=== PATIENT | female | born 1955 | race Caucasian/White ===

== ENCOUNTER → 2016-02-23 | Outpatient (CLI) | payer OTHER ==
[~2016-02-23] MED LIST: ACET300T2 PO; ACET325T PO; AMIT100T2 PO; AMIT1TAB79 PO; AMIT25TA9 PO; ASPI-110 PO; ASPI81TA11 PO; ATEN25TA PO; BACL10TA PO; BACL20TA PO; CELE40TA PO; CITA40TA4 PO; CLON0.5T PO; CLON1 PO; CYMB60CA PO; DOCU100C PO; DULO1CAP2 PO; DULO1CAP3 PO; ESTR1TAB PO; HYDR-3516 PO; LEVO75TA3 PO; LIDO1PAD52 TOPICAL; MECL-62 PO; MELO-1 PO; METH500T3 PO; MILKSUS PO; NORC5TAB PO; PANT40TA3 PO; PERC5TAB12 PO; PERC7.5T13 PO; POLY17S PO; PROT40TA PO; ROBA750T PO; ROLLER WALKER1 MI1; TRAM50TA PO; ULTR50TA5 PO; VENTAER INH
[2016-02-23 09:22] LABS: THYROXINE (T4) 11.6 MCG/DL (4.8-13.9)
[2016-02-23 09:32] LABS: CORTISOL 14.6 MCG/DL
== END ==
LOC: CLAB 08:26
PROVIDERS: ATTEND Family Medicine
DX: R94.7 Abnormal results of other endocrine function studies (principal); E03.8 Other specified hypothyroidism; Z79.899 Other long term (current) drug therapy
CPT/HCPCS: 36415; 82533; 84436; 84443; 84480

== ENCOUNTER → 2016-03-08 | Outpatient (CLI) | payer OTHER ==
[2016-03-08 12:04] LABS: AUTOMATED NEUTROPHIL # 1.5 TH/MM3 (1.8-7.7); BASOPHIL % 1.4 % (0.0-2.0); EOSINOPHIL # 0.1 TH/MM3 (0-0.4); EOSINOPHIL % 3.4 % (0.0-4.0); HEMATOCRIT 39.4 % (35.0-46.0); HEMO FLAGS DIFF FINAL; LYMPH % 39.2 % (9.0-44.0); LYMPHOCYTE # 1.2 TH/MM3 (1.0-4.8); MEAN CELL VOLUME 86.5 FL (80.0-100.0); MEAN CORPUSCULAR HEMOGLOBIN 29.1 PG (27.0-34.0); MEAN CORPUSCULAR HGB CONC 33.6 % (32.0-36.0); PLATELET COUNT 314 TH/MM3 (150-450); RED BLOOD COUNT 4.56 MIL/MM3 (4.00-5.30); RED CELL DISTRIBUTION WIDTH 13.1 % (11.6-17.2); WHITE BLOOD COUNT 3.1 TH/MM3 (4.0-11.0)
[2016-03-08 12:10] LABS: BLOOD, URINE NEG (NEG); GLUCOSE,URINE NEG (NEG); KETONE, URINE NEG (NEG); MUCUS URINE FEW /lpf (OCC); NITRITE,URINE NEG (NEG); PH, URINE 7.5 (5.0-8.5); SQUAMOUS EPITHELIAL CELL URINE <1 /hpf (0-5); URINE COLOR YELLOW (YELLW/STRAW)
[2016-03-08 12:12] LABS: COMMENT (UR) CULT NOT INDICATED; CULTURE IF INDICATED CULT NOT INDICATED
[2016-03-08 12:34] LABS: BICARBONATE 28.7 MEQ/L (21.0-32.0); POTASSIUM 4.1 MEQ/L (3.5-5.1)
== END ==
LOC: ELAB 10:07
PROVIDERS: ATTEND Family Medicine
DX: R11.2 Nausea with vomiting, unspecified (principal); N39.0 Urinary tract infection, site not specified; R53.83 Other fatigue; R42 Dizziness and giddiness; R63.0 Anorexia; R19.7 Diarrhea, unspecified; Z79.899 Other long term (current) drug therapy
CPT/HCPCS: 36415; 80048; 81001; 85025

== ENCOUNTER 2016-05-01 16:06 | Inpatient (IN) | payer OTHER ==
[2016-05-01] VITALS (7 sets, daily range): BP systolic 94–143; BP diastolic 50–73; PULSE 78–90; RESP 16–18; TEMP 97.8–98.8; O2SAT 97–100
[~2016-05-01] VITALS: Ht 172.7 cm; Wt 70.0 kg
[~2016-05-01 16:06] MED LIST changes: -ACET300T2 PO; -ACET325T PO; -AMIT100T2 PO; -AMIT25TA9 PO; -ASPI-110 PO; -ATEN25TA PO; -BACL20TA PO; -CITA40TA4 PO; -CLON0.5T PO; -DULO1CAP2 PO; -DULO1CAP3 PO; -MECL-62 PO; -MELO-1 PO; -METH500T3 PO; -MILKSUS PO; -NORC5TAB PO; -PERC5TAB12 PO; -PERC7.5T13 PO; -PROT40TA PO; -ROBA750T PO; -ROLLER WALKER1 MI1; -TRAM50TA PO; -ULTR50TA5 PO
[2016-05-01] MEDS ORDERED: SODIUM CHLOR 0.9% 1000 ML INJ 1,000 ML IV ONE (16:36)
[2016-05-01] MEDS ORDERED: ACETAMINOPHEN/HYDROcodone 325 MG/5 MG TAB PO ONE (16:45)
[2016-05-01] MEDS ORDERED: MECLIZINE HCL 25 MG TAB PO ONE (16:45)
[2016-05-01] MEDS ORDERED: ONDANSETRON HCL 4 MG/2 ML VIAL IVP ONE (16:45)
[2016-05-01] MEDS ORDERED: BACL20TA PO (16:55)
[2016-05-01 16:59] LABS: AUTOMATED NEUTROPHIL # 3.6 TH/MM3 (1.8-7.7); BASOPHIL % 0.5 % (0.0-2.0); EOSINOPHIL # 0.1 TH/MM3 (0-0.4); EOSINOPHIL % 1.3 % (0.0-4.0); HEMATOCRIT 36.1 % (35.0-46.0); HEMO FLAGS DIFF FINAL; LYMPH % 26.3 % (9.0-44.0); LYMPHOCYTE # 1.5 TH/MM3 (1.0-4.8); MEAN CELL VOLUME 87.5 FL (80.0-100.0); MEAN CORPUSCULAR HEMOGLOBIN 28.7 PG (27.0-34.0); MEAN CORPUSCULAR HGB CONC 32.8 % (32.0-36.0); MONO % 9.9 % (0.0-8.0); PLATELET COUNT 305 TH/MM3 (150-450); RED BLOOD COUNT 4.13 MIL/MM3 (4.00-5.30); RED CELL DISTRIBUTION WIDTH 14.3 % (11.6-17.2); WHITE BLOOD COUNT 5.8 TH/MM3 (4.0-11.0)
[2016-05-01 17:05] LABS: APTT (PATIENT) 24.7 SEC (24.3-30.1)
[2016-05-01 17:16] LABS: ANION GAP 7 MEQ/L (5-15); BICARBONATE 25.3 MEQ/L (21.0-32.0); BLOOD UREA NITROGEN 13 MG/DL (7-18); CHLORIDE 107 MEQ/L (98-107); GLOMERULAR FILTRATION RATE 86 ML/MIN (>89); SODIUM (NA) 139 MEQ/L (136-145)
--- NOTE | 2016-05-01 17:19 | RADRPT ---
EXAM DATE/TIME: 05/01/2016 17:05 [facility] COMPARISON: CT BRAIN W/O CONTRAST, July 02, 2013, 14:07. INDICATIONS : Dizziness, vertigo and nausea. RADIATION DOSE: 35.74 CTDIvol (mGy) MEDICAL HISTORY : Cardiovascular disease. SURGICAL HISTORY : None. ENCOUNTER: Initial ACUITY: 1 day PAIN SCALE: 2/10 LOCATION: cranial TECHNIQUE: Multiple contiguous axial images were obtained of the head. Using automated exposure control and adj ustment of the mA and/or kV according to patient size, radiation dose was kept as low as reasonably a chievable to obtain optimal diagnostic quality images. FINDINGS: CEREBRUM: The ventricles are normal for age. No evidence of midline shift, mass lesion, hemorrhage or acute in farction. No extra-axial fluid collections are seen. POSTERIOR FOSSA: The cerebellum and brainstem are intact. The 4th ventricle is midline. The cerebellopontine angle i s unremarkable. EXTRACRANIAL: The visualized portion of the orbits is intact. SKULL: The calvaria is intact. No evidence of skull fracture. CONCLUSION: No acute disease. Skip Solo MD on May 01, 2016 at 17:17 Board Certified Radiologist. This report was verified electronically.
[2016-05-01 17:22] LABS: CREATINE KINASE 38 U/L (26-192)
--- NOTE | 2016-05-01 17:25 | PD ---
HPI Chief Complaint: Dizziness Time Seen by Provider: 17:19 Travel History International Travel<30 days: No Contact w/Intl Traveler<30days: No Traveled to known affect area: No History of Present Illness HPI 60-year-old female that presents to the ED for evaluation of dizziness. Patient came here by ambulance for evaluation of this. Per patient today she was trying to take a nap and also and she felt dizzy. Per patient she felt like the room was spinning. Per patient she couldn't get up and any position made the symptoms worse. Per patient she still feels somewhat dizzy but not as bad. Per patient as long as she doesn't move too much and she is okay. She does tell me that she has a significant history of recent trauma to the head with concussion as well as fractures. Patient was seen at [facility] for this after she fell from a horse and she was admitted to a rehabilitation facility where we have records of her injuries. She was diagnosed with a concussion but no bleeding. The patient she was concerned because of the dizziness and the recent injury that she could have something else going on and that is what made her call the ambulance and brought her here. Patient denies any other symptom. Per patient she did not have any of the symptoms since having the injury. She denies any new falls or injuries. She has pain on her back which is 7 out of 10 and she requested a Lortab which is what she usually takes for it as she has missed her dose for today since being here. Other than that she denies any other pain. No headache. No blurry vision. No double vision. No loss of vision. Has an allergy to morphine. PFSH Past Medical History Arthritis: Yes Asthma: Yes Autoimmune Disease: No Anxiety: Yes Depression: Yes Heart Rhythm Problems: Yes (Ocassional palpitations) Cancer: No Cardiac Catheterization: No Cardiovascular Problems: No High Cholesterol: No Chemotherapy: No Congestive Heart Failure: No COPD: No Cerebrovascular Accident: No Diabetes: No Diminished Hearing: No Endocrine: Yes Fibromyalgia: Yes Gastrointestinal Disorders: Yes (GASTROENTERITIS) GERD: Yes Genitourinary: No Headaches: Yes Hiatal Hernia: No Hypertension: Yes Immune Disorder: No Kidney Stones: No Musculoskeletal: Yes (L CLAVICLE, R WRISYA, L3-L4) Neurologic: Yes (TBI) Psychiatric: Yes Reproductive: No Respiratory: Yes Migraines: No Pneumonia: Yes Radiation Therapy: No Renal Failure: No Seizures: No Sickle Cell Disease: No Sleep Apnea: No Thyroid Disease: Yes (hypothyroidism) Ulcer: No Tetanus Vaccination: < 5 Years Influenza Vaccination: Yes ?: Not Menopausal: Yes : 5 Para: 5 Tubal Ligation: Yes Past Surgical History AICD: No Appendectomy: Yes Arteriovenous Shunt: No Body Medical Devices: Jaw - screws Cardiac Surgery: Yes Coronary Artery Bypass Graft: No Ear Surgery: No Endocrine Surgery: No Eye Surgery: No Genitourinary Surgery: No Gynecologic Surgery: Yes (Hysterectomy 2014) Hysterectomy: Yes Insulin Pump: No Joint Replacement: No Oral Surgery: No Pacemaker: No Thoracic Surgery: No Tonsillectomy: Yes Other Surgery: Yes (2 KNEE SURGERIES, JAW SURGERY) Family History Family Myocardial Infarction: Yes (Father) Social History Alcohol Use: No (OCC) Tobacco Use: No Substance Use: No Allergies-Medications (Allergen,Severity, Reaction): Coded Allergies: Morphine (Verified Allergy, Intermediate, Nausea/Vomiting, 05/01/16) Reported Meds & Prescriptions Reported Meds & Active Scripts Active Hydrocodone-Acetaminophen 5-325 mg Tab 1 Tab PO Q4H PRN Elavil (Amitriptyline HCl) 25 Mg Tab 25 Mg PO HS Aspirin EC (Aspirin) 81 Mg Tabdr 81 Mg PO DAILY Klonopin (Clonazepam) 1 Mg Tab 1 Mg PO TID Celexa (Citalopram Hydrobromide) 40 Mg Tab 40 Mg PO DAILY Cymbalta DR (Duloxetine HCl) 60 Mg Capdr 60 Mg PO DAILY Levothyroxine (Levothyroxine Sodium) 75 Mcg Tab 75 Mcg PO DAILY Estradiol 1 Mg Tab 1 Mg PO DAILY Ventolin Hfa 18 GM Inh (Albuterol Sulfate) 90 Mcg/Act Aer 2 Puff INH Q4-6H PRN Reported Baclofen 20 Mg Tab 20 Mg PO QID Review of Systems General / Constitutional: No: Fever, Chills, Weight Gain, Weight Loss, Other Eyes: No: Diploplia, Blurred Vision, Photophobia, Drainage, Redness, Foreign Body Sensation, Pain, Tearing, Blind Spots, Visual changes, Blindness, Other HENT: No: Headaches, Vertigo, Lightheadedness, Sore Throat, Rhinitis, Rhinorrhea, Congestion, Nosebleed, Neck Stiffness, Neck Pain, Masses, Gingival Bleeding, Dental Difficulties, Ear Discharge, Earache, Other Cardiovascular: No: Chest Pain or Discomfort, Palpitations, Irregular Rhythm, Tachycardia, Diaphoresis, Syncope, Dyspnea on exertion, Varicosities, Edema, Cyanosis, Varicosities, Phlebitis, Claudication, Other Respiratory: No: Cough, Shortness of Breath, Wheezing, Sneezing, Orthopnea, Hemoptysis, Stridor, Night Sweats, Pleuritic Pain, Other Gastrointestinal: No: Nausea, Vomiting, Diarrhea, Abdominal Pain, Hematemesis, Hematochezia, Constipation, Changes in Bowel Habits, Indigestion, Dysphagia, Loss of Appetite, Other Genitourinary: No: Urgency, Frequency, Dysuria, Nocturia, Hematuria, Decreased Urinary Output, Oliguria, Hesitancy, Dribbling, Incontinence, Pelvic Pain, Flank Pain, Dyspareunia, Discharge, Dysmenorrhea, Menorrhagia, Metorrhagia, Vaginal Bleeding, Other Musculoskeletal: Positive: Pain, No: Myalgias, Arthralgias, Limited ROM, Weakness, Cramping, Edema, Atrophy, Other Skin: No Rash, No Itching, No Dryness, No Lumps, No Hives, No Change in Pigmentation, No Change in nails, No Alopecia, No Lesions, No Breast Lumps, No Breast Tenderness, No Breast Swelling, No Other Neurologic: Positive: Dizziness, No: Weakness, Syncope, Focal Abnormalities, Coordination Problem, Tremor, Ataxia, Headache, Change in Mentation, Slurred Speech, Paresthesia, Incontinence, Seizures, Sensory Disturbance, Other Psychiatric: No: Anxiety, Depression, Suicidal Ideations, Disorder of Thought, Mood Disorder, Substance Abuse, Homicidal Ideation, Other Endocrine: No: Heat Intolerance, Cold Intolerance, Polyuria, Polydipsia, Other Hematologic/Lymphatic: No: Easy Bruising, Lymph Node Enlargement, Other Physical Exam Narrative GENERAL: SKIN: Warm and dry. HEAD: Atraumatic. Normocephalic. EYES: Pupils equal and round. No scleral icterus. No injection or drainage. ENT: No nasal bleeding or discharge. Mucous membranes pink and moist. Tongue is midline. No uvula deviation. NECK: Trachea midline. No JVD. CARDIOVASCULAR: Regular rate and rhythm. No murmurs, S3, S4. RESPIRATORY: No accessory muscle use. Clear to auscultation. Breath sounds equal bilaterally. GASTROINTESTINAL: Abdomen soft, non-tender, nondistended. Hepatic and splenic margins not palpable. MUSCULOSKELETAL: Extremities without clubbing, cyanosis, or edema. No obvious deformities. Full range of motion of the upper and lower extremities bilaterally. 2+ pulses bilaterally. NEUROLOGICAL: Awake and alert. No obvious cranial nerve deficits. Motor grossly within normal limits. Five out of 5 muscle strength in the arms and legs. Normal speech. PSYCHIATRIC: Appropriate mood and affect; insight and judgment normal. Data Data Last Documented VS Vital Signs Date Time Temp Pulse Resp B/P Pulse Ox O2 Delivery O2 Flow Rate FiO2 05/01/16 17:50 99 21 05/01/16 17:25 72 17 143/71 05/01/16 16:50 Room Air 05/01/16 16:30 98.0 Orders Electrocardiogram (05/01/16 16:36) Basic Metabolic Panel (Bmp) (05/01/16 16:36) Complete Blood Count With Diff (05/01/16 16:36) Magnesium (Mg) (05/01/16 16:36) Ckmb (Isoenzyme) Profile (05/01/16 16:36) Troponin I (05/01/16 16:36) Act Partial Throm Time (Ptt) (05/01/16 16:36) Prothrombin Time / Inr (Pt) (05/01/16 16:36) Ct Brain W/O Iv Contrast(Rout) (05/01/16 16:36) Ecg Monitoring (05/01/16 16:36) Iv Access Insert/Monitor (05/01/16 16:36) Oximetry (05/01/16 16:36) Meclizine (Antivert) (05/01/16 16:45) Ondansetron Inj (Zofran Inj) (05/01/16 16:45) Sodium Chlor 0.9% 1000 Ml Inj (Ns 1000 M (05/01/16 16:36) Orthostatic Vital Signs (05/01/16 16:36) Acetamin-Hydrocod 325-5 Mg (Ethel 5-325 (05/01/16 16:45) Sodium Chlor 0.9% 1000 Ml Inj (Ns 1000 M (05/01/16 17:45) Admit Order (Ed Use Only) (05/01/16 17:45) Administrative Specialist / Telemetry [email or web address] (05/01/16 17:45) Vital Signs (Adult) Q4H (05/01/16 17:45) Diet Regular Basic (05/01/16 Dinner) Activity Bed Rest (05/01/16 17:45) ^ Saline Lock (05/01/16 17:45) Resp Oxygen Adan C Titrat 1-4 L (05/01/16 ) ^ Notify Dr: Other (05/01/16 17:45) Sodium Chloride 0.9% Flush (Ns Flush) (05/01/16 21:00) Sodium Chloride 0.9% Flush (Ns Flush) (05/01/16 17:45) Consult Neurology (05/01/16 ) Labs Laboratory Tests Test 05/01/16 16:45 White Blood Count 5.8 TH/MM3 Red Blood Count 4.13 MIL/MM3 Hemoglobin 11.9 GM/DL Hematocrit 36.1 % Mean Corpuscular Volume 87.5 FL Mean Corpuscular Hemoglobin 28.7 PG Mean Corpuscular Hemoglobin 32.8 % Concent Red Cell Distribution Width 14.3 % Platelet Count 305 TH/MM3 Mean Platelet Volume 6.9 FL Neutrophils (%) (Auto) 62.0 % Lymphocytes (%) (Auto) 26.3 % Monocytes (%) (Auto) 9.9 % Eosinophils (%) (Auto) 1.3 % Basophils (%) (Auto) 0.5 % Neutrophils # (Auto) 3.6 TH/MM3 Lymphocytes # (Auto) 1.5 TH/MM3 Monocytes # (Auto) 0.6 TH/MM3 Eosinophils # (Auto) 0.1 TH/MM3 Basophils # (Auto) 0.0 TH/MM3 CBC Comment DIFF FINAL Differential Comment Prothrombin Time 11.0 SEC Prothromb Time International 1.0 RATIO Ratio Activated Partial 24.7 SEC Thromboplast Time Sodium Level 139 MEQ/L Potassium Level 4.0 MEQ/L Chloride Level 107 MEQ/L Carbon Dioxide Level 25.3 MEQ/L Anion Gap 7 MEQ/L Blood Urea Nitrogen 13 MG/DL Creatinine 0.70 MG/DL Estimat Glomerular Filtration 86 ML/MIN Rate Random Glucose 95 MG/DL Calcium Level 8.2 MG/DL Magnesium Level 2.0 MG/DL Total Creatine Kinase 38 U/L Troponin I LESS THAN 0.02 NG/ML MDM Medical Decision Making Medical Screen Exam Complete: Yes Emergency Medical Condition: Yes Medical Record Reviewed: Yes Interpretation(s) CBC & BMP Diagram 05/01/16 16:[address] 05/01/16 1636 Signed Impressions: Service Date/Time: Sunday, May 01, 2016 17:05 - CONCLUSION: No acute disease. Skip Solo MD EKG shows sinus rhythm with no sign of acute ischemia or arrythmia. Read by me and attending. Differential Diagnosis Dizziness versus concussion versus head bleed versus electron normality versus vertigo versus syncope versus orthostatic hypotension Narrative Course 60-year-old female that presents to the ED that presents to the ED for evaluation of dizziness. Patient was properly examined and was found to have signs and symptoms consistent with appears to be possible vertigo. Unclear to this time. Labs and imaging ordered. She was given IV fluids. Meclizine given. Lortab for pain. Labs and imaging showed no obvious sign of acute disease. Unfortunately we cannot do the orthostatics on the patient as she is too symptomatic. Patient cannot even sit with her having severe symptoms and we cannot even assess her orthostatics. Patient appears to be well with lying down. At this time I recommend admission as patient is not safe discharge. I spoke with Dr. Rodgers my attending who agrees to admission. Patient will be admitted to Dr. Darnell who agrees to admission. He asked me to put a consult to neurology as well as some admitting orders. Procedures EKG Prior to Arrival: No Diagnosis Primary Impression: Dizziness Additional Impression: Vertigo Admitting Information Admitting Physician Requests: Nolan Ayala May 01, 2016 17:25
[2016-05-01] MEDS ORDERED: SODIUM CHLORIDE 0.9% FLUSH 10 ML FLUSH IVF PRN (17:45)
[2016-05-01] MEDS ORDERED: SODIUM CHLOR 0.9% 1000 ML INJ 1,000 ML IV SCH (17:45)
[2016-05-01] MEDS ORDERED: SODIUM CHLORIDE 0.9% FLUSH 10 ML FLUSH IV FLUSH PRN (20:15)
[2016-05-01] MEDS ORDERED: NALOXONE HCL 0.4 MG/ML AMP IV PRN (20:15)
[2016-05-01] MEDS: SODIUM CHLOR 0.9% 1000 ML INJ 1,000 ML IV SCH (20:43)
[2016-05-01] MEDS: SODIUM CHLORIDE 0.9% FLUSH 10 ML FLUSH IV FLUSH SCH (20:43)
[2016-05-01] MEDS ORDERED: SODIUM CHLORIDE 0.9% FLUSH 10 ML FLUSH IV FLUSH SCH (21:00)
[2016-05-01] MEDS ORDERED: AMITRIPTYLINE HCL 25 MG TAB PO SCH (22:35)
[2016-05-01] MEDS: ACETAMINOPHEN/HYDROcodone 325 MG/5 MG TAB PO PRN (22:52)
[2016-05-01] MEDS: clonazePAM 1 MG TAB PO SCH (22:52)
[2016-05-02] VITALS (7 sets, daily range): BP systolic 108–119; BP diastolic 60–67; PULSE 57–90; RESP 18–20; TEMP 97.1–98.6; O2SAT 94–97
[2016-05-02] MEDS: ACETAMINOPHEN/HYDROcodone 325 MG/5 MG TAB PO PRN ×3 (04:56→15:10)
[2016-05-02 05:22] LABS: AUTOMATED NEUTROPHIL # 3.2 TH/MM3 (1.8-7.7); BASOPHIL % 0.6 % (0.0-2.0); EOSINOPHIL # 0.1 TH/MM3 (0-0.4); EOSINOPHIL % 1.3 % (0.0-4.0); HEMATOCRIT 33.5 % (35.0-46.0); HEMO FLAGS DIFF FINAL; LYMPHOCYTE # 1.9 TH/MM3 (1.0-4.8); MEAN CELL VOLUME 87.7 FL (80.0-100.0); MEAN CORPUSCULAR HGB CONC 34.2 % (32.0-36.0); MONO % 9.4 % (0.0-8.0); NEUT % 55.7 % (16.0-70.0); PLATELET COUNT 309 TH/MM3 (150-450); RED BLOOD COUNT 3.82 MIL/MM3 (4.00-5.30); RED CELL DISTRIBUTION WIDTH 14.7 % (11.6-17.2); WHITE BLOOD COUNT 5.7 TH/MM3 (4.0-11.0)
[2016-05-02 05:49] LABS: ALT (GPT) 29 U/L (10-53); ANION GAP 7 MEQ/L (5-15); AST (GOT) 7 U/L (15-37); BICARBONATE 26.3 MEQ/L (21.0-32.0); BLOOD UREA NITROGEN 12 MG/DL (7-18); CHLORIDE 108 MEQ/L (98-107); GLOMERULAR FILTRATION RATE 68 ML/MIN (>89); POTASSIUM 4.3 MEQ/L (3.5-5.1); SODIUM (NA) 141 MEQ/L (136-145)
[2016-05-02 05:57] LABS: ALKALINE PHOSPHATASE 53 U/L (45-117); FREE T3 1.63 PG/ML (2.18-3.98); TOTAL BILIRUBIN ADULT 0.2 MG/DL (0.2-1.0)
--- NOTE | 2016-05-02 07:35 | HHI.HP ---
History of Present Illness Service Family medicine Primary Care Physician Jose Manuel Darnell, DO Admission Diagnosis dizziness, possible vertigo, inability to ambulate Diagnoses: History of Present Illness Patient is a very pleasant 60 year old female who presented to the ER via evac for extreme dizziness. She has had a admission at [facility] this year after being thrown off a horse and incurred a concussion, numerous fractures, and abdominal bleed. She woke up yesterday and felt slightly dizzy however it improved after she started moving. In the early afternoon yesterday she was sitting on the couch and the dizziness returned and she was unable to stand up. She denies and cold symptoms, fevers, nausea or vomiting. 10-year-old . Per patient she felt like the room was spinning. Per patient she couldn't get up and any position made the symptoms worse. The patient was also concerned because of the dizziness and the recent injury that she could have something else going on and that is what made her call the ambulance and brought her here. Per patient she did not have any of the symptoms since having the injury. She denies any new falls or injuries. No headache. No blurry vision. No double vision. No loss of vision. Has an allergy to morphine. Head CT done with no acute findings and neurology consulted. Patient has a past medical history of anxiety, PTSD, depression Fibromyalgia, hypothyroidism, and chronic pain. . Review of Systems Constitutional: COMPLAINS OF: Dizziness Eyes: DENIES: Blurred vision, Diplopia, Vision loss, Double Vision Ears, nose, mouth, throat: COMPLAINS OF: Vertigo, DENIES: Hearing loss, Throat pain, Sinus Pain Respiratory: DENIES: Sputum production, Shortness of breath Cardiovascular: DENIES: Chest pain, Palpitations, Syncope Gastrointestinal: DENIES: Abdominal pain, Constipation, Diarrhea, Nausea Integumentary: DENIES: Pruritus, Rash Neurologic: COMPLAINS OF: Abnormal gait, DENIES: Seizures, Speech Problems, Tremor Psychiatric: COMPLAINS OF: Anxiety, Depression Past Family Social History Allergies: Coded Allergies: Morphine (Verified Allergy, Intermediate, Nausea/Vomiting, 05/01/16) Past Medical History Anxiety, depression, fibromyalgia, PTSD, arthritis, hypothyroidism, and GERD Past Surgical History Appendectomy: Yes Body Medical Devices: Jaw - screws Gynecologic Surgery: Yes (Hysterectomy 2014) Hysterectomy: Yes Tonsillectomy: Yes Other Surgery: Yes (2 KNEE SURGERIES, JAW SURGERY) Reported Medications Current Medications Medications (Trade) Dose Ordered Sig/Yancy Route Start Time Stop Time Status Last Admin (NS 1000 ml Inj) 1,000 ml @ 100 mls/hr Q10H IV 05/01/16 21:00 (NS Flush) 2 ml UNSCH PRN IV FLUSH 05/01/16 20:15 (NS Flush) 2 ml BID IV FLUSH 05/01/16 21:00 (Narcan Inj) 0.4 mg UNSCH PRN IV 05/01/16 20:15 (Elavil) 25 mg HS PO 05/01/16 22:35 05/01/16 22:53 (KlonoPIN) 1 mg TID PO 05/01/16 22:35 05/01/16 22:52 ([place] 5-325 Mg) 1 tab Q4H PRN PO 05/01/16 22:30 05/02/16 04:56 Active Ordered Medications Current Medications Medications (Trade) Dose Ordered Sig/Yancy Route Start Time Stop Time Status Last Admin (NS 1000 ml Inj) 1,000 ml @ 100 mls/hr Q10H IV 05/01/16 21:00 (NS Flush) 2 ml UNSCH PRN IV FLUSH 05/01/16 20:15 (NS Flush) 2 ml BID IV FLUSH 05/01/16 21:00 (Narcan Inj) 0.4 mg UNSCH PRN IV 05/01/16 20:15 (Elavil) 25 mg HS PO 05/01/16 22:35 05/01/16 22:53 (KlonoPIN) 1 mg TID PO 05/01/16 22:35 05/01/16 22:52 ([place] 5-325 Mg) 1 tab Q4H PRN PO 05/01/16 22:30 05/02/16 04:56 Family History Mother is in good health Father significant HTN and cardiac disease. Social History Quit smoking over 23 years ago Occasional ETOH use Lives in 2 nd story and son is living with patient currently Works as a nurse. Physical Exam Vital Signs Vital Signs Date Time Temp Pulse Resp B/P Pulse Ox O2 Delivery O2 Flow Rate FiO2 05/02/16 03:24 98.6 78 18 108/60 97 05/01/16 23:07 97.8 89 18 94/50 97 05/01/16 20:31 90 05/01/16 19:50 98.8 78 18 114/56 98 05/01/16 18:35 18 05/01/16 17:50 99 21 05/01/16 17:25 72 17 143/71 05/01/16 16:50 100 Room Air 05/01/16 16:34 84 17 100 Room Air 05/01/16 16:30 98.0 84 16 136/73 98 Physical Exam GENERAL: This is a well-nourished, well-developed patient, in no apparent distress. SKIN: No rashes, ecchymoses or lesions. Cool and dry. HEAD: Atraumatic. Normocephalic. No temporal or scalp tenderness. EYES: Pupils equal round and reactive. Extraocular motions intact. No scleral icterus. No injection or drainage. ENT: Nose without bleeding, purulent drainage or septal hematoma. Throat without erythema, tonsillar hypertrophy or exudate. Uvula midline. Airway patent. NECK: Trachea midline. No JVD or lymphadenopathy. Supple, nontender, no meningeal signs. CARDIOVASCULAR: Regular rate and rhythm without murmurs, gallops, or rubs. RESPIRATORY: Clear to auscultation. Breath sounds equal bilaterally. No wheezes , rales, or rhonchi. GASTROINTESTINAL: Abdomen soft, non-tender, nondistended. No hepato-splenomegaly , or palpable masses. No guarding. MUSCULOSKELETAL: Extremities without clubbing, cyanosis, or edema. No joint tenderness, effusion, or edema noted. No calf tenderness. Negative Homans sign bilaterally. NEUROLOGICAL: Awake and alert. Cranial nerves II through XII intact. Motor and sensory grossly within normal limits. Five out of 5 muscle strength in all muscle groups. Normal speech. Laboratory Laboratory Tests Test 05/01/16 05/02/16 05/02/16 16:45 04:38 04:39 White Blood Count 5.8 5.7 Red Blood Count 4.13 3.82 Hemoglobin 11.9 11.4 Hematocrit 36.1 33.5 Mean Corpuscular Volume 87.5 87.7 Mean Corpuscular Hemoglobin 28.7 30.0 Mean Corpuscular Hemoglobin 32.8 34.2 Concent Red Cell Distribution Width 14.3 14.7 Platelet Count 305 309 Mean Platelet Volume 6.9 7.0 Neutrophils (%) (Auto) 62.0 55.7 Lymphocytes (%) (Auto) 26.3 33.0 Monocytes (%) (Auto) 9.9 9.4 Eosinophils (%) (Auto) 1.3 1.3 Basophils (%) (Auto) 0.5 0.6 Neutrophils # (Auto) 3.6 3.2 Lymphocytes # (Auto) 1.5 1.9 Monocytes # (Auto) 0.6 0.5 Eosinophils # (Auto) 0.1 0.1 Basophils # (Auto) 0.0 0.0 CBC Comment DIFF FINAL DIFF FINAL Differential Comment Prothrombin Time 11.0 Prothromb Time International 1.0 Ratio Activated Partial 24.7 Thromboplast Time Sodium Level 139 141 Potassium Level 4.0 4.3 Chloride Level 107 108 Carbon Dioxide Level 25.3 26.3 Anion Gap 7 7 Blood Urea Nitrogen 13 12 Creatinine 0.70 0.86 Estimat Glomerular Filtration 86 68 Rate Random Glucose 95 94 Calcium Level 8.2 8.3 Magnesium Level 2.0 Total Creatine Kinase 38 Troponin I LESS THAN 0.02 Total Bilirubin 0.2 Aspartate Amino Transf 7 (AST/SGOT) Alanine Aminotransferase 29 (ALT/SGPT) Alkaline Phosphatase 53 Total Protein 5.5 Albumin 2.9 Free Triiodothyronine (T3) 1.63 pg/dL Result Diagram: 05/02/16 0439 05/02/16 0438 Imaging Last [address] 05/01/16 1636 Signed Impressions: Service Date/Time: Sunday, May 01, 2016 17:05 - CONCLUSION: No acute disease. Skip Solo MD Assessment and Plan Problem List: (1) Dizziness Status: Acute Plan: Dizziness has improved. Head CT negative awaiting neurology consult. IVF running at 84cc/hr (2) Major depression Status: Acute Plan: Medication from home resumed. Patient in good spirts (3) GERD (gastroesophageal reflux disease) Status: Chronic Plan: No complaints. Pepcid ordered (4) Anxiety Status: Chronic Plan: On Clonapam. Well managed (5) Hypothyroidism Status: Chronic Plan: Resumed. T 3 slightly low. Assessment and Plan Assessment and plan discussed with Kathy Pan May 02, 2016 07:35
[2016-05-02] MEDS: SODIUM CHLORIDE 0.9% FLUSH 10 ML FLUSH IV FLUSH SCH ×2 (09:00→21:00)
[2016-05-02] MEDS: SODIUM CHLOR 0.9% 1000 ML INJ 1,000 ML IV SCH ×2 (09:53→17:00)
[2016-05-02] MEDS: DULoxetine HCl DR 60 MG CAP PO SCH (09:53)
[2016-05-02] MEDS: clonazePAM 1 MG TAB PO SCH ×3 (09:53→17:55)
[2016-05-02] MEDS: CITALOPRAM HYDROBROMIDE 40 MG TAB PO SCH (09:53)
[2016-05-02] MEDS: FAMOTIDINE 20 MG TAB PO SCH ×2 (09:53→21:01)
[2016-05-02] MEDS: LEVOTHYROXINE SODIUM 75 MCG TAB PO SCH (10:08)
--- NOTE | 2016-05-02 10:36 | EKG ---
Date Performed: 05/01/2016 Time Performed: 16:40:09 PTAGE: 60 years EKG: Sinus rhythm NORMAL ECG NO PREVIOUS TRACING DOCTOR: Anish Beard Interpretating Date/Time 05/02/2016 10:35:18
--- NOTE | 2016-05-02 12:16 | MB ---
cc: FAUZIA JETT. PHD MD DATE OF CONSULTATION 05/02/2016 REASON FOR CONSULTATION Vertigo HISTORY OF PRESENT ILLNESS Ms. Mccain is a very nice 60-year woman with a history of recent head trauma seven weeks ago after she fell off a horse. She did strike her head resulted in no hemorrhage. She did have a fracture to the lumbar spine, left clavicle and right wrist. She states she required no neurosurgical intervention. She was stable until yesterday when she was laying in the couch watching television. She suddenly turned and noticed a severe sense of vertigo where the room was spinning. This persisted throughout the day exacerbated with motion. She states that she has been sleeping on her right side trying to protect the left clavicular fracture and was wondering if this might have been contributory since she states last night she slept on her left side. She feels of vertigo is a little better today, but has not resolved. She has not had any other neurologic symptoms. PAST MEDICAL HISTORY 1. History of PTSD. 2. Fibromyalgia 3. Depression 4. Anxiety 5. Hypothyroidism 6. GERD 7. Recent trauma from falling off a horse. 8. Hysterectomy 9. Two knee surgeries 10. Jaw surgery NEUROLOGIC EXAMINATION VITAL SIGNS: Blood pressure is 116/66, pulse 76, respirations 20, temperature 97.6 degree. Higher cortical functions are normal. Cranial nerves II-XII are normal. She does not have any nystagmus. The extraocular movements are intact. Pupils equal and reactive. On motor examination, she has got normal strength and tone of all groups. There is no drift. Reflexes are symmetric. CT scan of the brain is unremarkable. LABORATORY DATA The white count is 5700, hemoglobin 11.4, hematocrit 33%, platelet count 309,000, PT 11, INR 1, APTT 24.7. Sodium is 141, potassium 4.3, chloride 108, CO2 26.3, the BUN is 12, creatinine 0.86, GFR 68, glucose 94. IMPRESSION Vertigo the history is suggestive of a benign positional vertigo. RECOMMENDATIONS Recommend an MRI of the brain to rule out any other pathology. We also suggest meclizine at the present time. If it does not resolve, consider physical therapy for the Uriel maneuver. MD HANS Whitaker/BATOOL /12:00 PM /12:08 PM
[2016-05-02] MEDS: MECLIZINE HCL 25 MG TAB PO SCH ×2 (12:31→21:01)
[2016-05-02] MEDS ORDERED: GADODIAMIDE PF 287 MG/ML 5 ML VIAL (for RAD MRI) IV ONE (16:30)
--- NOTE | 2016-05-02 16:53 | RADRPT ---
EXAM DATE/TIME: 05/02/2016 15:46 [facility] COMPARISON: No previous studies available for comparison. INDICATIONS : Dizziness. CONTRAST: 14 cc Omniscan (gadodiamide) IV MEDICAL HISTORY : Anxiety. SURGICAL HISTORY : Hysterectomy. Jaw surgery. Knee times 2. ENCOUNTER: Initial ACUITY: 2 day PAIN SCORE: 3/10 LOCATION: head TECHNIQUE: Multiplanar, multisequence MRI of the brain was performed both prior to and following the administrat ion of paramagnetic contrast. FINDINGS: CEREBRUM: The ventricles are normal for age. No evidence of midline shift, mass lesion, hemorrhage or acute in farction. No extraaxial fluid collections are seen. The pituitary gland and suprasellar cistern are normal in configuration. WHITE MATTER: No significant signal abnormalities are seen in the white matter. POSTERIOR FOSSA: The cerebellum and brainstem are intact. The 4th ventricle is midline. The cerebellopontine angle is unremarkable. The cerebellar tonsils are normal in position. DIFFUSION IMAGING: No focal areas of restricted diffusion are seen. No evidence of acute infarction. EXTRACRANIAL: The visualized portions of the orbits and paranasal sinuses are unremarkable. POST-CONTRAST: No abnormal areas of parenchymal or dural enhancement. No evidence of blood-brain barrier breakdown. CONCLUSION: Normal examination. Rafael Sauer MD on May 02, 2016 at 16:49 Board Certified Radiologist. This report was verified electronically.
[2016-05-02] MEDS: oxyCODONE/ACETAMINOPHEN 5 MG/325 MG TAB PO PRN (19:45)
[2016-05-02] MEDS ORDERED: AMITRIPTYLINE HCL 25 MG TAB PO SCH (21:00)
[2016-05-02] MEDS: BACLOFEN 10 MG TAB PO SCH (21:01)
[2016-05-03 00:37] VITALS: BP 114/63; PULSE 78; RESP 21; TEMP 98.4; O2SAT 92
[2016-05-03] MEDS: SODIUM CHLOR 0.9% 1000 ML INJ 1,000 ML IV SCH ×3 (03:00→12:40)
[2016-05-03] MEDS: oxyCODONE/ACETAMINOPHEN 5 MG/325 MG TAB PO PRN ×2 (04:31→12:39)
[2016-05-03 04:46] VITALS: BP 113/60; PULSE 80; RESP 18; TEMP 97.8; O2SAT 93
[2016-05-03] MEDS: MECLIZINE HCL 25 MG TAB PO SCH ×2 (06:17→12:39)
[2016-05-03] MEDS: LEVOTHYROXINE SODIUM 75 MCG TAB PO SCH (06:17)
[2016-05-03] MEDS: BACLOFEN 10 MG TAB PO SCH ×2 (06:17→12:39)
[2016-05-03 08:00] VITALS: PULSE 85
[2016-05-03 08:00] LABS: AUTOMATED NEUTROPHIL # 2.8 TH/MM3 (1.8-7.7); BASOPHIL % 0.8 % (0.0-2.0); EOSINOPHIL # 0.1 TH/MM3 (0-0.4); EOSINOPHIL % 1.5 % (0.0-4.0); HEMATOCRIT 35.3 % (35.0-46.0); HEMO FLAGS DIFF FINAL; LYMPH % 35.4 % (9.0-44.0); LYMPHOCYTE # 1.8 TH/MM3 (1.0-4.8); MEAN CELL VOLUME 87.3 FL (80.0-100.0); MEAN CORPUSCULAR HEMOGLOBIN 28.6 PG (27.0-34.0); MEAN CORPUSCULAR HGB CONC 32.8 % (32.0-36.0); MONO % 8.4 % (0.0-8.0); NEUT % 53.9 % (16.0-70.0); PLATELET COUNT 328 TH/MM3 (150-450); RED BLOOD COUNT 4.04 MIL/MM3 (4.00-5.30); RED CELL DISTRIBUTION WIDTH 14.2 % (11.6-17.2); WHITE BLOOD COUNT 5.2 TH/MM3 (4.0-11.0)
[2016-05-03 08:23] VITALS: BP 112/65; PULSE 76; RESP 18; TEMP 97.6; O2SAT 95
[2016-05-03 08:32] LABS: BICARBONATE 25.7 MEQ/L (21.0-32.0); POTASSIUM 3.7 MEQ/L (3.5-5.1)
[2016-05-03] MEDS: clonazePAM 1 MG TAB PO SCH ×2 (08:32→12:39)
[2016-05-03] MEDS: CITALOPRAM HYDROBROMIDE 40 MG TAB PO SCH (08:32)
[2016-05-03] MEDS: DULoxetine HCl DR 60 MG CAP PO SCH (08:32)
[2016-05-03] MEDS: FAMOTIDINE 20 MG TAB PO SCH (08:32)
[2016-05-03] MEDS: SODIUM CHLORIDE 0.9% FLUSH 10 ML FLUSH IV FLUSH SCH (08:33)
[2016-05-03 08:41] LABS: FREE T4 1.12 NG/DL (0.76-1.46)
[2016-05-03 11:14] VITALS: BP 133/73; PULSE 85; RESP 20; TEMP 97.6; O2SAT 95
--- NOTE | 2016-05-03 13:17 | HHI.PR ---
Review/Management Diagnosis benign positional vertigo Plan ok form neurology standpoint to discharge home continue meclizine 25 mg tid for 1-2 weeks, If sx persist could try PT as outpatient for vestibular rehab follow up with me in office in 2 weeks Diagnosis/Plan: Subjective Subjective Comments No acute events reported vertigo is improving. tolerating meclizine well Active Medications Current Medications Medications (Trade) Dose Ordered Sig/Yancy Route Start Time Stop Time Status Last Admin (NS 1000 ml Inj) 1,000 ml @ 100 mls/hr Q10H IV 05/01/16 21:00 05/03/16 04:31 (NS Flush) 2 ml UNSCH PRN IV FLUSH 05/01/16 20:15 (NS Flush) 2 ml BID IV FLUSH 05/01/16 21:00 (Narcan Inj) 0.4 mg UNSCH PRN IV 05/01/16 20:15 (KlonoPIN) 1 mg TID PO 05/01/16 22:35 05/03/16 12:39 (Pepcid) 20 mg BID PO 05/02/16 09:00 05/03/16 08:32 (Elavil) 25 mg HS PO 05/02/16 21:00 05/02/16 21:01 (CeleXA) 40 mg DAILY PO 05/02/16 09:00 05/03/16 08:32 (Cymbalta Dr) 60 mg DAILY PO 05/02/16 09:00 05/03/16 08:32 (Synthroid) 75 mcg DAILY@0600 PO 05/02/16 08:30 05/03/16 06:17 (Antivert) 25 mg Q8HR PO 05/02/16 14:00 05/03/16 12:39 (Lioresal) 10 mg Q8HR PO 05/02/16 22:00 05/03/16 12:39 (Percocet 5-325 Mg) 1 tab Q6H PRN PO 05/02/16 18:15 05/03/16 12:39 Allergies Allergies Coded Allergies Morphine (Verified Allergy, Intermediate, Nausea/Vomiting, 05/01/16) Exam I&O / VS Vital Signs Date Time Temp Pulse Resp B/P Pulse Ox O2 Delivery O2 Flow Rate FiO2 05/03/16 11:14 97.6 85 20 133/73 95 05/03/16 08:23 97.6 76 18 112/65 95 05/03/16 08:00 85 05/03/16 04:46 97.8 80 18 113/60 93 05/03/16 00:37 98.4 78 21 114/63 92 05/02/16 20:56 90 05/02/16 19:22 97.8 81 18 112/61 97 05/02/16 15:15 97.1 80 18 112/65 94 Respiratory: Lungs CTA, Non-labored respirations, BS equal Cardiology: Normal rate, Regular Rhythm Musculoskeletal: Tenderness, Swelling Exam Comments alert, oriented, speech normal CN normal Motor--no focal deficits Objective Radiology Results mri brain normal. Micro and Labs Laboratory Tests Test 05/03/16 06:55 White Blood Count 5.2 Red Blood Count 4.04 Hemoglobin 11.6 Hematocrit 35.3 Mean Corpuscular Volume 87.3 Mean Corpuscular Hemoglobin 28.6 Mean Corpuscular Hemoglobin 32.8 Concent Red Cell Distribution Width 14.2 Platelet Count 328 Mean Platelet Volume 6.9 Neutrophils (%) (Auto) 53.9 Lymphocytes (%) (Auto) 35.4 Monocytes (%) (Auto) 8.4 Eosinophils (%) (Auto) 1.5 Basophils (%) (Auto) 0.8 Neutrophils # (Auto) 2.8 Lymphocytes # (Auto) 1.8 Monocytes # (Auto) 0.4 Eosinophils # (Auto) 0.1 Basophils # (Auto) 0.0 CBC Comment DIFF FINAL Differential Comment Sodium Level 140 Potassium Level 3.7 Chloride Level 106 Carbon Dioxide Level 25.7 Anion Gap 8 Blood Urea Nitrogen 10 Creatinine 0.76 Estimat Glomerular Filtration 78 Rate Random Glucose 104 Calcium Level 8.4 Free Thyroxine 1.12 Thyroid Stimulating Hormone 0.107 3rd Gen Dennis Grady PhD MD May 03, 2016 13:17
[2016-05-03] MEDS ORDERED: DULO1CAP3 PO (15:09)
[2016-05-03] MEDS ORDERED: MECL-62 PO (15:09)
[2016-05-03] MEDS ORDERED: CELE40TA PO (15:09)
--- NOTE | 2016-05-03 15:18 | HHI.DS ---
Discharge Summary Admission Date May 01, 2016 at 20:13 Admitting Diagnosis dizzyness, possible vertigo, inability to ambulate Brief History Patient is a very pleasant 60 year old female who presented to the ER via evac for extreme dizziness. She has had a admission at [facility] this year after being thrown off a horse and incurred a concussion, numerous fractures, and abdominal bleed. She woke up yesterday and felt slightly dizzy however it improved after she started moving. In the early afternoon yesterday she was sitting on the couch and the dizziness returned and she was unable to stand up. She denies and cold symptoms, fevers, nausea or vomiting. 10-year-old . Per patient she felt like the room was spinning. Per patient she couldn't get up and any position made the symptoms worse. The patient was also concerned because of the dizziness and the recent injury that she could have something else going on and that is what made her call the ambulance and brought her here. Per patient she did not have any of the symptoms since having the injury. She denies any new falls or injuries. No headache. No blurry vision. No double vision. No loss of vision. Has an allergy to morphine. Head CT done with no acute findings and neurology consulted. Patient has a past medical history of anxiety, PTSD, depression Fibromyalgia, hypothyroidism, and chronic pain. . CBC/BMP: 05/03/16 0655 05/03/16 0655 Significant Findings Laboratory Tests Test 05/01/16 05/02/16 05/02/16 05/03/16 16:45 04:38 04:39 06:55 Mean Platelet Volume 6.9 FL 6.9 FL (7.0-11.0) (7.0-11.0) Monocytes (%) (Auto) 9.9 % (0.0-8.0) 9.4 % (0.0-8.0) 8.4 % (0.0-8.0) Estimat Glomerular Filtration 86 ML/MIN (>89) 68 ML/MIN (>89) 78 ML/MIN (>89) Rate Calcium Level 8.2 MG/DL 8.3 MG/DL 8.4 MG/DL (8.5-10.1) (8.5-10.1) (8.5-10.1) Troponin I LESS THAN 0.02 NG/ML (0.02-0.05) Chloride Level 108 MEQ/L (98-107) Aspartate Amino Transf 7 U/L (15-37) (AST/SGOT) Total Protein 5.5 GM/DL (6.4-8.2) Albumin 2.9 GM/DL (3.4-5.0) Free Triiodothyronine (T3) 1.63 PG/ML pg/dL (2.18-3.98) Red Blood Count 3.82 MIL/MM3 (4.00-5.30) Hemoglobin 11.4 GM/DL (11.6-15.3) Hematocrit 33.5 % (35.0-46.0) Thyroid Stimulating Hormone 0.107 uIU/ML 3rd Gen (0.358-3.740) PE at Discharge GENERAL: Alert and cooperative SKIN: Warm and dry. HEAD: Normocephalic. EYES: No scleral icterus. No injection or drainage. NECK: Supple, trachea midline. No JVD or lymphadenopathy. CARDIOVASCULAR: Regular rate and rhythm without murmurs, gallops, or rubs. RESPIRATORY: Breath sounds equal bilaterally. No accessory muscle use. GASTROINTESTINAL: Abdomen soft, non-tender, nondistended. MUSCULOSKELETAL: No cyanosis, or edema. BACK: Nontender without obvious deformity. No CVA tenderness. Hospital Course Patient is a very pleasant 60 year old female who presented to the ER via evac for extreme dizziness. She has had a admission at [facility] this year after being thrown off a horse and incurred a concussion, numerous fractures, and abdominal bleed. She woke up yesterday and felt slightly dizzy however it improved after she started moving. In the early afternoon yesterday she was sitting on the couch and the dizziness returned and she was unable to stand up. She denies and cold symptoms, fevers, nausea or vomiting. 10-year-old . Per patient she felt like the room was spinning. Per patient she couldn't get up and any position made the symptoms worse. The patient was also concerned because of the dizziness and the recent injury that she could have something else going on and that is what made her call the ambulance and brought her here. Per patient she did not have any of the symptoms since having the injury. She denies any new falls or injuries. No headache. No blurry vision. No double vision. No loss of vision. Has an allergy to morphine. Head CT and MRI done with no acute findings. Patient has a past medical history of anxiety, PTSD, depression Fibromyalgia, hypothyroidism, and chronic pain. Patient was followed by neurology and was cleared for discharge with recommendation for follow up in 2 weeks. PT was consulted today to instruct patient on the Uriel maneuver. Reviewed with patient. Patient dizziness is not completely gone but has greatly improved. Discharge Disposition: Discharge Home Discharge Instructions DIET: Follow Instructions for: As Tolerated, No Restrictions Activities you can perform: Regular-No Restrictions New Medications: Citalopram (Celexa) 40 Mg Tab 40 MG PO DAILY Depression Control #[address] (Duloxetine DR) 60 Mg Capdr 60 MG PO DAILY Depression Control #60 CAP Meclizine (Meclizine) 25 Mg Tab 25 MG PO Q8HR Dizziness #60 TAB Continued Medications: Albuterol 18 GM Inh (Ventolin Hfa 18 GM Inh) 90 Mcg/Act Aer 2 PUFF INH Q4-6H PRN SHORTNESS OF BREATH #1 Ref 0 INHALER Amitriptyline HCl (Elavil) 25 Mg Tab 25 MG PO HS #30 Ref [address] (Aspirin EC) 81 Mg Tabdr 81 MG PO DAILY #30 Ref 1 TAB Baclofen (Baclofen) 20 Mg Tab 20 MG PO QID Muscle Spasm Ref 0 TAB Clonazepam (Klonopin) 1 Mg Tab 1 MG PO TID anxiety #90 Ref 1 TAB Estradiol (Estradiol) 1 Mg Tab 1 MG PO DAILY Estrogen Supplements #30 Ref 1 TAB Hydrocodone-Acetaminophen (Hydrocodone-Acetaminophen) 5-325 mg Tab 1 TAB PO Q4H PRN PAIN SCALE 6 TO 10 #90 Ref 0 TAB Levothyroxine (Levothyroxine) 75 Mcg Tab 75 MCG PO DAILY Thyroid #30 Ref 1 TAB Discontinued Medications: Citalopram (Celexa) 40 Mg Tab 40 MG PO DAILY depression #30 Ref [address] (Cymbalta DR) 60 Mg Capdr 60 MG PO DAILY depression #30 Ref 1 CAP Additional Information Follow up appt with Dr. Darnell at [facility] on 03-22-2016 at 12:45 Follow up with Neurology in 2 weeks Kathy Florentino May 03, 2016 15:18
[2016-05-08] MEDS ORDERED: AMIT1TAB79 PO (12:56)
[2016-05-08] MEDS ORDERED: CLON1 PO (12:56)
[2016-05-08] MEDS ORDERED: TRAM50TA PO (12:56)
[2016-05-08] MEDS ORDERED: PROT40TA PO (12:56)
== END 2016-05-03 16:55 | disposition home or self-care (01) | DRG 149 ==
LOC: NEPE 16:06 → NEDA 17:50 → NEPGCP 19:40 → OBSVTOIN 20:13
PROVIDERS: ADMIT Family Medicine; ATTEND Family Medicine
DX: H81.10 Benign paroxysmal vertigo, unspecified ear (principal); I10 Essential (primary) hypertension; E03.9 Hypothyroidism, unspecified; Z88.5 Allergy status to narcotic agent; S06.0X9D Concussion with loss of consciousness of unspecified duration, subsequent encounter; V80.010D Animal-rider injured by fall from or being thrown from horse in noncollision accident, subsequent encounter; Y93.52 Activity, horseback riding; K21.9 Gastro-esophageal reflux disease without esophagitis; M79.7 Fibromyalgia; J45.909 Unspecified asthma, uncomplicated; F32.9 Major depressive disorder, single episode, unspecified; M19.90 Unspecified osteoarthritis, unspecified site; F43.10 Post-traumatic stress disorder, unspecified; G89.29 Other chronic pain; Z90.710 Acquired absence of both cervix and uterus; S42.002D Fracture of unspecified part of left clavicle, subsequent encounter for fracture with routine healing
CPT/HCPCS: 70450; 70553; 80048; 80053; 82550; 83735; 84439; 84443; 84481; 84484; 85025; 85610; 85730; 93005; 96361; 96374; A9579; J2405; J7030

== ENCOUNTER → 2016-05-24 | Outpatient (CLI) | payer OTHER ==
[~2016-05-24] MED LIST changes: +AMIT100T2 PO; -BACL10TA PO; +BACL20TA PO; -CYMB60CA PO; -DOCU100C PO; +DULO1CAP3 PO; -LIDO1PAD52 TOPICAL; +MECL-62 PO; +MELO-1 PO; +METH500T3 PO; +NORC5TAB PO; -PANT40TA3 PO; +PERC5TAB12 PO; +PERC7.5T13 PO; -POLY17S PO; +PROT40TA PO; +ROBA750T PO; +ROLLER WALKER1 MI1; +TRAM50TA PO; -VENTAER INH
[2016-05-28 11:53] LABS: PROGESTERONE LESS THAN 0.1 ng/mL (())
[2016-05-28 11:55] LABS: ESTRADIOL <10 pg/mL (())
== END ==
LOC: OLAB 09:12
PROVIDERS: ATTEND Family Medicine
DX: Z79.890 Hormone replacement therapy (principal)
CPT/HCPCS: 82670; 82679; 84144; 84403

== ENCOUNTER 2016-07-13 14:03 | Inpatient (IN) | payer OTHER ==
[~2016-07-13] VITALS: Ht 175.3 cm; Wt 86.5 kg
[~2016-07-13 14:03] MED LIST changes: -AMIT100T2 PO; -MELO-1 PO; -METH500T3 PO; -NORC5TAB PO; -PERC5TAB12 PO; -PERC7.5T13 PO; -ROBA750T PO; -ROLLER WALKER1 MI1
[2016-07-13 14:15] VITALS: BP 111/73; PULSE 97; RESP 16; TEMP 98.2
--- NOTE | 2016-07-13 14:29 | PD ---
HPI Chief Complaint: fall off of horse Time Seen by Provider: 14:08 Travel History International Travel<30 days: No Contact w/Intl Traveler<30days: No Traveled to known affect area: No History of Present Illness HPI The patient was seen and examined in the presence of the nurse. This patient was riding a horse and had a helmet on. She was thrown from the horse and landed on her right hip. He was not able to get up. Complains of right hip and pelvic pain. Duration 1 hour. Symptoms are of moderate severity. No alleviating factors. She did not strike her head. She has no head or neck pain. PFSH Past Medical History Arthritis: Yes Asthma: Yes Autoimmune Disease: No Blood Disorders: No Anxiety: Yes Depression: Yes Heart Rhythm Problems: Yes (Ocassional palpitations) Cancer: No Cardiac Catheterization: No Cardiovascular Problems: No High Cholesterol: No Chemotherapy: No Chest Pain: No Congestive Heart Failure: No COPD: No Cerebrovascular Accident: No Diabetes: No Diminished Hearing: No Endocrine: Yes Fibromyalgia: Yes Gastrointestinal Disorders: Yes (GASTROENTERITIS) GERD: Yes Genitourinary: No Headaches: Yes Hiatal Hernia: No Hypertension: Yes Immune Disorder: No Kidney Stones: No Musculoskeletal: Yes (L CLAVICLE, R WRISYA, L3-L4) Neurologic: Yes (TBI) Psychiatric: Yes Reproductive: No Respiratory: Yes Migraines: No Pneumonia: Yes Radiation Therapy: No Renal Failure: No Seizures: No Sickle Cell Disease: No Sleep Apnea: No Thyroid Disease: Yes (hypothyroidism) Ulcer: No Menopausal: Yes : 5 Para: 5 Tubal Ligation: Yes Past Surgical History AICD: No Appendectomy: Yes Arteriovenous Shunt: No Body Medical Devices: Jaw - screws Cardiac Surgery: Yes Coronary Artery Bypass Graft: No Ear Surgery: No Endocrine Surgery: No Eye Surgery: No Genitourinary Surgery: No Gynecologic Surgery: Yes (Hysterectomy 2014) Hysterectomy: Yes Insulin Pump: No Joint Replacement: No Oral Surgery: No Pacemaker: No Thoracic Surgery: No Tonsillectomy: Yes Other Surgery: Yes (2 KNEE SURGERIES, JAW SURGERY) Social History Alcohol Use: No (OCC) Tobacco Use: No Substance Use: No Allergies-Medications (Allergen,Severity, Reaction): Coded Allergies: Morphine (Verified Allergy, Intermediate, Nausea/Vomiting, 07/13/16) Reported Meds & Prescriptions Reported Meds & Active Scripts Active Klonopin (Clonazepam) 1 Mg Tab 1 Mg PO QID Duloxetine DR (Duloxetine HCl) 60 Mg Capdr 60 Mg PO DAILY Celexa (Citalopram Hydrobromide) 40 Mg Tab 40 Mg PO DAILY Meclizine (Meclizine HCl) 25 Mg Tab 25 Mg PO Q8HR Hydrocodone-Acetaminophen 5-325 mg Tab 1 Tab PO Q4H PRN Aspirin EC (Aspirin) 81 Mg Tabdr 81 Mg PO DAILY Levothyroxine (Levothyroxine Sodium) 75 Mcg Tab 75 Mcg PO DAILY Estradiol 1 Mg Tab 1 Mg PO DAILY Reported Amitriptyline (Amitriptyline HCl) 100 Mg Tab 100 Mg PO HS Tramadol (Tramadol HCl) 50 Mg Tab 50 Mg PO Q6H PRN Protonix (Pantoprazole Sodium) 40 Mg Tab 40 Mg PO DAILY Baclofen 20 Mg Tab 20 Mg PO QID Review of Systems General / Constitutional: No: Fever Eyes: No: Visual changes HENT: No: Headaches Cardiovascular: No: Chest Pain or Discomfort Respiratory: No: Shortness of Breath Gastrointestinal: No: Abdominal Pain Genitourinary: No: Dysuria Musculoskeletal: Positive: Arthralgias, Limited ROM, Pain Skin: No Rash Neurologic: No: Weakness Psychiatric: No: Depression Endocrine: No: Polydipsia Hematologic/Lymphatic: No: Easy Bruising Physical Exam Narrative GENERAL: Well-nourished, well-developed patient with right hip pain. SKIN: Focused skin assessment reveals no rash and nodules. Skin is Warm and dry. HEAD: Atraumatic. Normocephalic. EYES: Pupils equal and round. No scleral icterus. No injection or drainage. ENT: No nasal bleeding or discharge. Mucous membranes pink and moist. NECK: Trachea midline. No JVD. CARDIOVASCULAR: Regular rate and rhythm. No murmur appreciated. RESPIRATORY: No accessory muscle use. Clear to auscultation. Breath sounds equal bilaterally. GASTROINTESTINAL: Abdomen soft, non-tender, nondistended. Hepatic and splenic margins not palpable. MUSCULOSKELETAL: No obvious deformities. No clubbing. No cyanosis. No edema. Has pain with palpation of the right sided pelvic brim. No obvious instability. No extremity tenderness NEUROLOGICAL: Awake and alert. No obvious cranial nerve deficits. Motor grossly within normal limits. Normal speech. PSYCHIATRIC: Appropriate mood and affect; insight and judgment normal. Data Data Last Documented VS Vital Signs Date Time Temp Pulse Resp B/P Pulse Ox O2 Delivery O2 Flow Rate FiO2 07/13/16 14:15 98.2 97 16 111/73 Orders Iv Access Insert/Monitor (07/13/16 14:21) Complete Blood Count With Diff (07/13/16 14:21) Basic Metabolic Panel (Bmp) (07/13/16 14:21) Prothrombin Time / Inr (Pt) (07/13/16 14:21) Act Partial Throm Time (Ptt) (07/13/16 14:21) Chest, Single Ap (07/13/16 ) Hip, Lat Only W Ap Pelvis (07/13/16 ) Ct Abd/Pel W Iv Contrast(Rout) (07/13/16 ) Sodium Chlor 0.9% 1000 Ml Inj (Ns 1000 M (07/13/16 14:45) Ondansetron Inj (Zofran Inj) (07/13/16 14:45) Hydromorphone Pf Inj (Dilaudid Pf Inj) (07/13/16 14:45) Iohexol 350 Inj (Omnipaque 350 Inj) (07/13/16 16:26) Hydromorphone Pf Inj (Dilaudid Pf Inj) (07/13/16 16:45) Admit Order (Ed Use Only) (07/13/16 18:14) Labs Laboratory Tests Test 07/13/16 15:21 White Blood Count 7.2 TH/MM3 Red Blood Count 4.10 MIL/MM3 Hemoglobin 12.4 GM/DL Hematocrit 36.2 % Mean Corpuscular Volume 88.3 FL Mean Corpuscular Hemoglobin 30.2 PG Mean Corpuscular Hemoglobin 34.2 % Concent Red Cell Distribution Width 13.0 % Platelet Count 268 TH/MM3 Mean Platelet Volume 6.5 FL Neutrophils (%) (Auto) 74.4 % Lymphocytes (%) (Auto) 16.6 % Monocytes (%) (Auto) 7.1 % Eosinophils (%) (Auto) 1.5 % Basophils (%) (Auto) 0.4 % Neutrophils # (Auto) 5.4 TH/MM3 Lymphocytes # (Auto) 1.2 TH/MM3 Monocytes # (Auto) 0.5 TH/MM3 Eosinophils # (Auto) 0.1 TH/MM3 Basophils # (Auto) 0.0 TH/MM3 CBC Comment DIFF FINAL Differential Comment Prothrombin Time 11.4 SEC Prothromb Time International 1.0 RATIO Ratio Activated Partial 27.6 SEC Thromboplast Time Sodium Level 139 MEQ/L Potassium Level 3.9 MEQ/L Chloride Level 105 MEQ/L Carbon Dioxide Level 28.6 MEQ/L Anion Gap 5 MEQ/L Blood Urea Nitrogen 10 MG/DL Creatinine 0.91 MG/DL Estimat Glomerular Filtration 63 ML/MIN Rate Random Glucose 90 MG/DL Calcium Level 8.9 MG/DL MDM Medical Decision Making Medical Screen Exam Complete: Yes Emergency Medical Condition: Yes Medical Record Reviewed: Yes Differential Diagnosis Pelvic fracture, hip fracture, hip dislocation,intra-abdominal organ injury Narrative Course I have reviewed the patient's electronic medical record. 2 months ago patient was evaluated for trauma suffered when she fell off a horse and has fracture of lumbar spine and ribs. IV placed CBC is normal Metabolic profile is normal Coagulation studies are normal I reviewed her chest x-ray is negative for acute trauma I reviewed her pelvis x-ray shows pelvic fractures, nondisplaced I reviewed her right hip x-ray is negative CT abdomen and pelvis with IV contrast shows no intra-abdominal organ injury. She has a nondisplaced right sacral fracture and a nondisplaced left pubic body fracture I gave her 2 doses of IV Dilaudid and IV Zofran for symptom relief Still having a lot of pain and we tried to ambulate her but she could not get even out of the bed and could not bear any weight. I reviewed with orthopedist coverage who was the PA for Dr. Quinonez. The patient 's personal orthopedist is Dr. Leal. She recommended hospitalizing under the medical service and they will be consultants I reviewed with the primary physician Dr. Avitia who recommended admission Diagnosis Primary Impression: Pelvic fracture Qualified Code: S32.9XXA - Closed nondisplaced fracture of pelvis, unspecified part of pelvis, initial encounter Additional Impression: Unable to ambulate Admitting Information Admitting Physician Requests: Admit Efrem Munroe MD Jul 13, 2016 14:29
[2016-07-13] MEDS ORDERED: AMIT100T2 PO (14:43)
[2016-07-13] MEDS ORDERED: SODIUM CHLOR 0.9% 1000 ML INJ 1,000 ML IV ONE (14:45)
[2016-07-13] MEDS ORDERED: HYDROmorphone HCL PF 1 MG/ML VIAL IVS ONE ×3 (14:45→18:45)
[2016-07-13] MEDS ORDERED: ONDANSETRON HCL 4 MG/2 ML VIAL IV ONE (14:45)
--- NOTE | 2016-07-13 15:25 | RADRPT ---
EXAM DATE/TIME: 07/13/2016 14:52 [facility] COMPARISON: CHEST SINGLE AP, January 28, 2016, 0:04. INDICATIONS : Trauma MEDICAL HISTORY : Cardiovascular disease. SURGICAL HISTORY : None. ENCOUNTER: Initial ACUITY: 1 day PAIN SCORE: 0/10 LOCATION: Bilateral chest FINDINGS: A single view of the chest demonstrates over penetration of the lungs with limited anatomic detail. R adiopaque density projecting over the upper right chest I believe is external to the patient. Osseous structures are intact. Heart size is normal. CONCLUSION: 1. Radiopaque density projecting over the right upper chest and lower neck I believe is external to t he patient. Osseous structures are intact. 2. Limited anatomic detail of the lungs due to overpenetration. No obvious infiltrate. Subtle pneumot horax cannot be excluded, however. Miguel A Manrique MD on July 13, 2016 at 15:21 Board Certified Radiologist. This report was verified electronically.
--- NOTE | 2016-07-13 15:35 | RADRPT ---
EXAM DATE/TIME: 07/13/2016 14:57 [facility] COMPARISON: No previous studies available for comparison. INDICATIONS : Trauma. pt fell off her horse today causing right hip pains. MEDICAL HISTORY : Cardiovascular disease. SURGICAL HISTORY : None. ENCOUNTER: Initial ACUITY: 1 day PAIN SCORE: 10/10 LOCATION: Right hip / pelvis FINDINGS: 2 views of the pelvis and right hip. Minimally displaced fracture of the left pubic body. Possible ri ght-sided sacral ala fracture. Hip joint alignment within normal limits. No evidence of joint narrowi ng. CONCLUSION: Acute left pubic body fracture. Possible right-sided sacral fracture. Power Lai MD on July 13, 2016 at 15:31 Board Certified Radiologist. This report was verified electronically.
[2016-07-13 15:42] LABS: AUTOMATED NEUTROPHIL # 5.4 TH/MM3 (1.8-7.7); BASOPHIL % 0.4 % (0.0-2.0); EOSINOPHIL # 0.1 TH/MM3 (0-0.4); EOSINOPHIL % 1.5 % (0.0-4.0); HEMATOCRIT 36.2 % (35.0-46.0); HEMO FLAGS DIFF FINAL; LYMPH % 16.6 % (9.0-44.0); LYMPHOCYTE # 1.2 TH/MM3 (1.0-4.8); MEAN CELL VOLUME 88.3 FL (80.0-100.0); MEAN CORPUSCULAR HEMOGLOBIN 30.2 PG (27.0-34.0); MEAN CORPUSCULAR HGB CONC 34.2 % (32.0-36.0); MONO % 7.1 % (0.0-8.0); NEUT % 74.4 % (16.0-70.0); PLATELET COUNT 268 TH/MM3 (150-450); WHITE BLOOD COUNT 7.2 TH/MM3 (4.0-11.0)
[2016-07-13 15:57] LABS: APTT (PATIENT) 27.6 SEC (24.3-30.1); PROTHROMBIN TIME - PATIENT 11.4 SEC (9.8-11.6)
[2016-07-13 16:15] LABS: BICARBONATE 28.6 MEQ/L (21.0-32.0); POTASSIUM 3.9 MEQ/L (3.5-5.1)
[2016-07-13] MEDS ORDERED: IOHEXOL 350 MG/ML 10 ML VIAL (for RAD DIAG) IV ONE (16:26)
--- NOTE | 2016-07-13 16:46 | RADRPT ---
EXAM DATE/TIME: 07/13/2016 16:03 [facility] COMPARISON: No previous studies available for comparison. INDICATIONS : Thrown from horse. IV CONTRAST: 93 cc Omnipaque 350 (iohexol) IV ORAL CONTRAST: No oral contrast ingested. RADIATION DOSE: 9.53 CTDIvol (mGy) MEDICAL HISTORY : Cardiovascular disease. SURGICAL HISTORY : Appendectomy. Hysterectomy. ENCOUNTER: Initial ACUITY: 1 day PAIN SCALE: 10/10 LOCATION: Abdomen TECHNIQUE: Volumetric scanning of the abdomen and pelvis was performed. Using automated exposure control and ad justment of the mA and/or kV according to patient size, radiation dose was kept as low as reasonably achievable to obtain optimal diagnostic quality images. FINDINGS: LOWER LUNGS: Mild atelectasis left lung base. Calcified granuloma left lung base. LIVER: Diffusely distended gallbladder. Calcified gallstones identified within the gallbladder. No definite pericholecystic inflammatory changes. Liver homogeneous. Mild diffuse prominence of the common duct m easuring 7 mm in diameter. Mild intrahepatic biliary ductal prominence diffusely. SPLEEN: Normal size without lesion. PANCREAS: Within normal limits. KIDNEYS: Normal in size and shape. There is no mass, stone or hydronephrosis. ADRENAL GLANDS: Within normal limits. VASCULAR: There is no aortic aneurysm. BOWEL/MESENTERY: Multiple colonic diverticula. No evidence of acute diverticulitis. No evidence of bowel dilatation. N o free air or free fluid. Appendix not identified. ABDOMINAL WALL: Within normal limits. RETROPERITONEUM: There is no lymphadenopathy. BLADDER: No wall thickening or mass. REPRODUCTIVE: Within normal limits. INGUINAL: There is no lymphadenopathy or hernia. MUSCULOSKELETAL: Left-sided nondisplaced pubic body/medial superior pubic ramus fracture. Right-sided nondisplaced sac ral ala fracture. CONCLUSION: 1. Left-sided nondisplaced pubic body/superior pubic ramus fracture and right-sided nondisplaced sacr al ala fracture. 2. Distended gallbladder with gallstones. Mildly prominent intrahepatic and extrahepatic biliary duct sElijah Lai MD on July 13, 2016 at 16:37 Board Certified Radiologist. This report was verified electronically.
[2016-07-13 19:00] VITALS: BP 117/70; PULSE 96; RESP 19; O2SAT 96
[2016-07-13] MEDS ORDERED: ROBA750T PO (19:16)
[2016-07-13] MEDS ORDERED: MELO-1 PO (19:16)
[2016-07-13] MEDS ORDERED: NORC5TAB PO (19:16)
[2016-07-13] MEDS ORDERED: SENNOSIDES 8.6 MG TAB PO PRN (19:30)
[2016-07-13] MEDS ORDERED: NALOXONE HCL 0.4 MG/ML AMP IV PRN (19:30)
[2016-07-13] MEDS ORDERED: SODIUM CHLORIDE 0.9% FLUSH 10 ML FLUSH IV FLUSH PRN (19:30)
[2016-07-13] MEDS ORDERED: traMADol HCL 50 MG TAB PO PRN (19:30)
[2016-07-13] MEDS ORDERED: BISACODYL 10 MG SUPP RECTAL PRN (19:30)
[2016-07-13] MEDS ORDERED: LACTULOSE SYRUP 20 GM/30 ML CUP PO PRN (19:30)
[2016-07-13] MEDS ORDERED: MAGNESIUM HYDROXIDE SUSP 30 ML CUP PO PRN (19:30)
[2016-07-13] MEDS: ACETAMINOPHEN/HYDROcodone 325 MG/5 MG TAB PO PRN ×2 (21:23→21:24)
[2016-07-13 22:00] VITALS: BP 105/60; PULSE 90; RESP 18; TEMP 96.5; O2SAT 98
[2016-07-13] MEDS: MECLIZINE HCL 25 MG TAB PO SCH (22:00)
[2016-07-13] MEDS ORDERED: MECL-62 PO (22:23)
[2016-07-13] MEDS: BACLOFEN 20 MG TAB PO SCH (22:34)
[2016-07-13] MEDS: SODIUM CHLORIDE 0.9% FLUSH 10 ML FLUSH IV FLUSH SCH (22:34)
[2016-07-13] MEDS: clonazePAM 1 MG TAB PO SCH (22:34)
[2016-07-13] MEDS: DOCUSATE SODIUM 50 MG/SENNA 8.6 MG TAB PO SCH (22:34)
[2016-07-13] MEDS: AMITRIPTYLINE HCL 100 MG TAB PO SCH (22:34)
[2016-07-14] MEDS: HYDROmorphone HCL PF 1 MG/ML VIAL IV PRN ×3 (00:01→08:13)
[2016-07-14] MEDS: ACETAMINOPHEN/HYDROcodone 325 MG/5 MG TAB PO PRN ×3 (02:21→11:25)
[2016-07-14 04:00] VITALS: BP 97/56; PULSE 92; RESP 16; TEMP 96.9; O2SAT 95
[2016-07-14] MEDS: LEVOTHYROXINE SODIUM 75 MCG TAB PO SCH (04:21)
[2016-07-14] MEDS: MECLIZINE HCL 25 MG TAB PO SCH ×3 (06:00→22:05)
[2016-07-14 08:00] VITALS: BP 90/55; PULSE 95; RESP 18; TEMP 96.7; O2SAT 96
[2016-07-14] MEDS: CITALOPRAM HYDROBROMIDE 40 MG TAB PO SCH (08:15)
[2016-07-14] MEDS: ASPIRIN EC 81 MG TABEC PO SCH (08:15)
[2016-07-14] MEDS: DULoxetine HCl DR 60 MG CAP PO SCH (08:15)
[2016-07-14] MEDS: PANTOPRAZOLE SOD 40 MG DELAYED RELEASE TAB PO SCH (08:15)
[2016-07-14] MEDS: DOCUSATE SODIUM 50 MG/SENNA 8.6 MG TAB PO SCH ×2 (08:15→22:04)
[2016-07-14] MEDS: clonazePAM 1 MG TAB PO SCH ×4 (08:15→22:05)
[2016-07-14] MEDS: METHOCARBAMOL 500 MG TAB PO SCH ×3 (08:15→17:13)
[2016-07-14] MEDS: SODIUM CHLORIDE 0.9% FLUSH 10 ML FLUSH IV FLUSH SCH ×2 (08:16→21:00)
[2016-07-14] MEDS: ESTRADIOL 1 MG TAB PO SCH (08:22)
[2016-07-14] MEDS: MELOXICAM 15 MG TAB PO SCH (08:22)
[2016-07-14] MEDS: BACLOFEN 20 MG TAB PO SCH ×4 (08:22→22:06)
--- NOTE | 2016-07-14 11:27 | HHI.HP ---
History of Present Illness Primary Care Physician Jose Manuel Darnell, DO Admission Diagnosis acute bilateral nondisplaced pelvic fxs,inability to amb Diagnoses: History of Present Illness pt has again fallen from a horse Review of Systems Musculoskeletal: COMPLAINS OF: Joint pain, Muscle aches, Back pain Past Family Social History Allergies: Coded Allergies: Morphine (Verified Allergy, Intermediate, Nausea/Vomiting, 07/13/16) Past Medical History fell from horse with lumbar wrist rib and shoulder fractures Past Surgical History benjamin shoulder Reported Medications Reported Meds & Active Scripts Active Klonopin (Clonazepam) 1 Mg Tab 1 Mg PO QID Duloxetine DR (Duloxetine HCl) 60 Mg Capdr 60 Mg PO DAILY Celexa (Citalopram Hydrobromide) 40 Mg Tab 40 Mg PO DAILY Aspirin EC (Aspirin) 81 Mg Tabdr 81 Mg PO DAILY Levothyroxine (Levothyroxine Sodium) 75 Mcg Tab 75 Mcg PO DAILY Estradiol 1 Mg Tab 1 Mg PO DAILY Reported Meclizine (Meclizine HCl) 25 Mg Tab 25 Mg PO Q8HR PRN Meloxicam 15 Mg Tab 15 Mg PO DAILY Robaxin (Methocarbamol) 750 Mg Tab 750 Mg PO TID 0900 1300 2000 [place] (Hydrocodone-Acetaminophen) 5-325 mg Tab 2 Tab PO Q4HR PRN Amitriptyline (Amitriptyline HCl) 100 Mg Tab 100 Mg PO HS Protonix (Pantoprazole Sodium) 40 Mg Tab 40 Mg PO DAILY Active Ordered Medications Current Medications Sodium Chloride (NS 1000 ml Inj) 1,000 ml @ 2,000 mls/hr Q30M ONCE IV Last administered on 07/13/16 15:34; Start 07/13/16 at 14:45; Stop 07/13/16 at 15:14; Status DC Ondansetron HCl (Zofran Inj) 4 mg ONCE ONCE IV Last administered on 07/13/16 15:35; Start 07/13/16 at 14:45; Stop 07/13/16 at 14:46; Status DC Hydromorphone HCl (Dilaudid Pf Inj) 0.5 mg ONCE ONCE IVS Last administered on 07/13/16 15:35; Start 07/13/16 at 14:45; Stop 07/13/16 at 14:46; Status DC Iohexol (Omnipaque 350 Inj) 100 ml STK-MED ONCE IV Last administered on 16:26; Start 07/13/16 at 16:26; Stop 07/13/16 at 16:27; Status DC Hydromorphone HCl (Dilaudid Pf Inj) 1 mg ONCE ONCE IVS Last administered on 17:07; Start 07/13/16 at 16:45; Stop 07/13/16 at 16:46; Status DC Hydromorphone HCl (Dilaudid Pf Inj) 1 mg ONCE ONCE IVS Last administered on 19:57; Start 07/13/16 at 18:45; Stop 07/13/16 at 18:46; Status DC Amitriptyline HCl (Elavil) 100 mg HS PO Last administered on 07/13/16 22:34; Start 07/13/16 at 21:00 Aspirin (Ecotrin Ec) 81 mg DAILY PO Last administered on 07/14/16 08:15; Start 07/14/16 at 09:00 Baclofen (Lioresal) 20 mg QID PO Last administered on 07/14/16 08:22; Start 07/13/16 at 21:00 Citalopram Hydrobromide (CeleXA) 40 mg DAILY PO Last administered on 07/14/16 08:15; Start 07/14/16 at 09:00 Clonazepam (KlonoPIN) 1 mg QID PO Last administered on 07/14/16 08:15; Start at 21:00 Duloxetine HCl (Cymbalta Dr) 60 mg DAILY PO Last administered on 07/14/16 08:15 ; Start 07/14/16 at 09:00 Estradiol (Estradiol) 1 mg DAILY PO Last administered on 07/14/16 08:22; Start 07/14/16 at 09:00 Acetaminophen/ Hydrocodone Bitart ([place] 5-325 Mg) 2 tab Q4HR PRN PO PAIN SCALE 6 TO 10 Last administered on 07/14/16 07:13; Start 07/13/16 at 19:30 Levothyroxine Sodium (Synthroid) 75 mcg DAILY@06 PO Last administered on 04:21; Start 07/14/16 at 06:00 Meclizine HCl (Antivert) 25 mg Q8HR PO ; Start 07/13/16 at 22:00 Meloxicam (Mobic) 15 mg DAILY PO Last administered on 07/14/16 08:22; Start 07/14/16 at 09:00 Pantoprazole Sodium (Protonix) 40 mg DAILY PO Last administered on 07/14/16 08: 15; Start 07/14/16 at 09:00 Tramadol HCl (Ultram) 50 mg Q6H PRN PO PAIN; Start 07/13/16 at 19:30 Methocarbamol (Robaxin) 750 mg TID PO Last administered on 07/14/16 08:15; Start 07/14/16 at 09:00 Sodium Chloride (NS Flush) 2 ml UNSCH PRN IV FLUSH FLUSH AFTER USING IV ACCESS ; Start 07/13/16 at 19:30 Sodium Chloride (NS Flush) 2 ml BID IV FLUSH Last administered on 07/14/16 08: 16; Start 07/13/16 at 21:00 Naloxone HCl (Narcan Inj) 0.4 mg UNSCH PRN IV SEE LABEL COMMENTS; Start at 19:30 Senna/Docusate Sodium (Jen-Colace) 1 tab BID PO Last administered on 07/14/16 08:15; Start 07/13/16 at 21:00 Magnesium Hydroxide (Milk Of Magnesia Liq) 30 ml Q12H PRN PO MILD - MODERATE CONSTIPATION; Start 07/13/16 at 19:30 Sennosides (Senokot) 17.2 mg Q12H PRN PO MODERATE - SEVERE CONSTIPATION; Start 07/13/16 at 19:30 Bisacodyl (Dulcolax Supp) 10 mg DAILY PRN RECTAL SEVERE CONSITIPATION; Start at 19:30 Lactulose (Lactulose Liq) 30 ml DAILY PRN PO SEVERE CONSITIPATION; Start at 19:30 Hydromorphone HCl (Dilaudid Pf Inj) 0.5 mg Q2H PRN IV BREAKTHROUGH PAIN Last administered on 07/14/16 08:13; Start 07/13/16 at 23:30; Stop 07/14/16 at 10:30; Status DC Oxycodone/ Acetaminophen (Percocet 10-325 Mg) 1 tab Q4H PRN PO PAIN SCALE 5 TO 10; Start 07/14/16 at 10:30; Status UNV Family History mother still living father with heart disease Social History non smoker occ drinker Physical Exam Vital Signs Vital Signs Date Time Temp Pulse Resp B/P Pulse Ox O2 Delivery O2 Flow Rate FiO2 07/14/16 04:00 96.9 92 16 97/56 95 07/13/16 22:00 96.5 90 18 105/60 98 07/13/16 21:30 Room Air 07/13/16 19:00 96 19 117/70 96 Room Air 07/13/16 14:15 98.2 97 16 111/73 Physical Exam GENERAL: This is a well-nourished, well-developed patient, in no apparent distress. SKIN: No rashes, ecchymoses or lesions. Cool and dry. HEAD: Atraumatic. Normocephalic. No temporal or scalp tenderness. EYES: Pupils equal round and reactive. Extraocular motions intact. No scleral icterus. No injection or drainage. ENT: Nose without bleeding, purulent drainage or septal hematoma. Throat without erythema, tonsillar hypertrophy or exudate. Uvula midline. Airway patent. NECK: Trachea midline. No JVD or lymphadenopathy. Supple, nontender, no meningeal signs. CARDIOVASCULAR: Regular rate and rhythm without murmurs, gallops, or rubs. RESPIRATORY: Clear to auscultation. Breath sounds equal bilaterally. No wheezes , rales, or rhonchi. GASTROINTESTINAL: Abdomen soft, non-tender, nondistended. No hepato-splenomegaly , or palpable masses. No guarding. MUSCULOSKELETAL: Extremities without clubbing, cyanosis, or edema. No joint tenderness, effusion, or edema noted. No calf tenderness. Negative Homans sign bilaterally.pelvic pain with movement and palpation NEUROLOGICAL: Awake and alert. Cranial nerves II through XII intact. Motor and sensory grossly within normal limits. Normal speech. Laboratory Laboratory Tests Test 07/13/16 15:21 White Blood Count 7.2 Red Blood Count 4.10 Hemoglobin 12.4 Hematocrit 36.2 Mean Corpuscular Volume 88.3 Mean Corpuscular Hemoglobin 30.2 Mean Corpuscular Hemoglobin 34.2 Concent Red Cell Distribution Width 13.0 Platelet Count 268 Mean Platelet Volume 6.5 Neutrophils (%) (Auto) 74.4 Lymphocytes (%) (Auto) 16.6 Monocytes (%) (Auto) 7.1 Eosinophils (%) (Auto) 1.5 Basophils (%) (Auto) 0.4 Neutrophils # (Auto) 5.4 Lymphocytes # (Auto) 1.2 Monocytes # (Auto) 0.5 Eosinophils # (Auto) 0.1 Basophils # (Auto) 0.0 CBC Comment DIFF FINAL Differential Comment Prothrombin Time 11.4 Prothromb Time International 1.0 Ratio Activated Partial 27.6 Thromboplast Time Sodium Level 139 Potassium Level 3.9 Chloride Level 105 Carbon Dioxide Level 28.6 Anion Gap 5 Blood Urea Nitrogen 10 Creatinine 0.91 Estimat Glomerular Filtration 63 Rate Random Glucose 90 Calcium Level 8.9 Result Diagram: 07/13/16 1521 07/13/16 1521 Imaging Last 72 hours Impressions Hip and Pelvis X-Ray 07/13/16 0000 Signed Impressions: Service Date/Time: Wednesday, July 13, 2016 14:57 - CONCLUSION: Acute left pubic body fracture. Possible right-sided sacral fracture. Power Lai MD Chest X-Ray 07/13/16 0000 Signed Impressions: Service Date/Time: Wednesday, July 13, 2016 14:52 - CONCLUSION: 1. Radiopaque density projecting over the right upper chest and lower neck I believe is external to the patient. Osseous structures are intact. 2. Limited anatomic detail of the lungs due to overpenetration. No obvious infiltrate. Subtle pneumothorax cannot be excluded, however. Miguel A Manrique MD Abdomen/Pelvis CT 07/13/16 0000 Signed Impressions: Service Date/Time: Wednesday, July 13, 2016 16:03 - CONCLUSION: 1. Left-sided nondisplaced pubic body/superior pubic ramus fracture and right-sided nondisplaced sacral ala fracture. 2. Distended gallbladder with gallstones. Mildly prominent intrahepatic and extrahepatic biliary ducts. Power Lai MD Assessment and Plan Problem List: (1) Pelvic fracture Status: Acute Plan: analgesics will need to be off iv pain meds and able to ambulate with assist per PT to be dc home Discussed Condition With patient Discharge Planning home with [facility] Problem Qualifiers (1) Pelvic fracture: Qualified Code: S32.9XXA - Closed nondisplaced fracture of pelvis, unspecified part of pelvis, initial encounter Jose Manuel Darnell DO Jul 14, 2016 11:27
[2016-07-14 12:00] VITALS: BP 86/54; PULSE 90; RESP 18; TEMP 97.7; O2SAT 95
[2016-07-14] MEDS: oxyCODONE/ACETAMINOPHEN 10 MG/325 MG TAB PO PRN ×3 (12:35→22:06)
[2016-07-14 16:00] VITALS: BP 93/58; PULSE 83; RESP 18; TEMP 96; O2SAT 93
--- NOTE | 2016-07-14 16:01 | PD.CONS ---
cc: John Quinonez MD (Shania Hanson) HPI Service Orthopedic Surgeons Consult Requested By ER Staff Reason for Consult Pubic rami and sacral fractures Primary Care Physician Jose Manuel Darnell, DO Admission Diagnosis acute bilateral nondisplaced pelvic fxs,inability to amb Diagnoses: (1) Fall from horse Diagnosis: Principal (2) Fracture of left superior pubic ramus with routine healing (3) Closed sacral fracture (4) Fibromyalgia (5) Major depression Chief Complaint: fall from horse/ pubic ramus and sacrum fractures (Shania Hanson) History of Present Illness 60 year old female presented to [facility] yesterday afternoon after sustaining an injury from being 'thrown off of her horse'. She had her helmet on and states she landed on her back / right hip. She had immediate pelvic and lower back pain. I spoke with ER doctor yesterday after reviewing the images. Patient was admitted for pain control and inability to ambulate without pain. Radiologic images reveal a left-sided nondisplaced pubic body/superior pubic ramus fracture and right-sided nondisplaced sacral ala fracture. She admits she was thrown off of her horse several months ago and sustained a right wrist injury/left shoulder and two lumbar compression fractures. Her orthopedic care was under Dr. Santacruz. She admits her previous orthopedic surgical history included a right knee surgery performed several years ago. No other musculoskeletal injuries at this time. She previously ambulated unassisted prior to this injury. She admits her pain is under control at this moment. She expresses interest in being discharged with home health care. All questions answered. (Shania Hanson) Review of Systems well outlined in medical records (Shania Hanson) Past Family Social History Past Medical History depression - see H&P Past Surgical History right knee (Shania Hanson) Allergies: Coded Allergies: Morphine (Verified Allergy, Intermediate, Nausea/Vomiting, 07/13/16) Active Ordered Medications Current Medications Medications (Trade) Dose Ordered Sig/Yancy Route Start Time Stop Time Status Last Admin (Elavil) 100 mg HS PO 07/13/16 21:00 07/13/16 22:34 (Ecotrin Ec) 81 mg DAILY PO 07/14/16 09:00 07/14/16 08:15 (Lioresal) 20 mg QID PO 07/13/16 21:00 07/14/16 12:35 (CeleXA) 40 mg DAILY PO 07/14/16 09:00 07/14/16 08:15 (KlonoPIN) 1 mg QID PO 07/13/16 21:00 07/14/16 12:35 (Cymbalta Dr) 60 mg DAILY PO 07/14/16 09:00 07/14/16 08:15 (Estradiol) 1 mg DAILY PO 07/14/16 09:00 07/14/16 08:22 ([place] 5-325 Mg) 2 tab Q4HR PRN PO 07/13/16 19:30 07/14/16 11:25 (Synthroid) 75 mcg DAILY@06 PO 07/14/16 06:00 07/14/16 04:21 (Antivert) 25 mg Q8HR PO 07/13/16 22:00 (Mobic) 15 mg DAILY PO 07/14/16 09:00 07/14/16 08:22 (Protonix) 40 mg DAILY PO 07/14/16 09:00 07/14/16 08:15 (Ultram) 50 mg Q6H PRN PO 07/13/16 19:30 (Robaxin) 750 mg TID PO 07/14/16 09:00 07/14/16 12:35 (NS Flush) 2 ml UNSCH PRN IV FLUSH 07/13/16 19:30 (NS Flush) 2 ml BID IV FLUSH 07/13/16 21:00 07/14/16 08:16 (Narcan Inj) 0.4 mg UNSCH PRN IV 07/13/16 19:30 (Jen-Colace) 1 tab BID PO 07/13/16 21:00 07/14/16 08:15 (Milk Of Magnesia Liq) 30 ml Q12H PRN PO 07/13/16 19:30 (Senokot) 17.2 mg Q12H PRN PO 07/13/16 19:30 (Dulcolax Supp) 10 mg DAILY PRN RECTAL 07/13/16 19:30 (Lactulose Liq) 30 ml DAILY PRN PO 07/13/16 19:30 (Percocet 10-325 Mg) 1 tab Q4H PRN PO 07/14/16 10:30 07/14/16 12:35 Reported Meds & Active Scripts Active Klonopin (Clonazepam) 1 Mg Tab 1 Mg PO QID Duloxetine DR (Duloxetine HCl) 60 Mg Capdr 60 Mg PO DAILY Celexa (Citalopram Hydrobromide) 40 Mg Tab 40 Mg PO DAILY Aspirin EC (Aspirin) 81 Mg Tabdr 81 Mg PO DAILY Levothyroxine (Levothyroxine Sodium) 75 Mcg Tab 75 Mcg PO DAILY Estradiol 1 Mg Tab 1 Mg PO DAILY Reported Meclizine (Meclizine HCl) 25 Mg Tab 25 Mg PO Q8HR PRN Meloxicam 15 Mg Tab 15 Mg PO DAILY Robaxin (Methocarbamol) 750 Mg Tab 750 Mg PO TID 0900 1300 2000 [place] (Hydrocodone-Acetaminophen) 5-325 mg Tab 2 Tab PO Q4HR PRN Amitriptyline (Amitriptyline HCl) 100 Mg Tab 100 Mg PO HS Protonix (Pantoprazole Sodium) 40 Mg Tab 40 Mg PO DAILY Family History noncontributory Social History denies smoking, admits to occasional alcohol use (Shania Hanson) Physical Exam Vital Signs Vital Signs Date Time Temp Pulse Resp B/P Pulse Ox O2 Delivery O2 Flow Rate FiO2 07/14/16 12:00 97.7 90 18 86/54 95 07/14/16 08:00 96.7 95 18 90/55 96 07/14/16 04:00 96.9 92 16 97/56 95 07/13/16 22:00 96.5 90 18 105/60 98 07/13/16 21:30 Room Air 07/13/16 19:00 96 19 117/70 96 Room Air Physical Exam bilateral lower extremities: able to flex bilateral hips with mild pain, tender to palpation over pelvis and sacrum, calves soft to touch, negative uma's, good cap refill, neurovascular intact, pain with any attempts at ambulation. no other musculoskeletal injury noted Laboratory Laboratory Tests Test 07/13/16 15:21 White Blood Count 7.2 TH/MM3 Red Blood Count 4.10 MIL/MM3 Hemoglobin 12.4 GM/DL Hematocrit 36.2 % Mean Corpuscular Volume 88.3 FL Mean Corpuscular Hemoglobin 30.2 PG Mean Corpuscular Hemoglobin 34.2 % Concent Red Cell Distribution Width 13.0 % Platelet Count 268 TH/MM3 Mean Platelet Volume 6.5 FL Neutrophils (%) (Auto) 74.4 % Lymphocytes (%) (Auto) 16.6 % Monocytes (%) (Auto) 7.1 % Eosinophils (%) (Auto) 1.5 % Basophils (%) (Auto) 0.4 % Neutrophils # (Auto) 5.4 TH/MM3 Lymphocytes # (Auto) 1.2 TH/MM3 Monocytes # (Auto) 0.5 TH/MM3 Eosinophils # (Auto) 0.1 TH/MM3 Basophils # (Auto) 0.0 TH/MM3 CBC Comment DIFF FINAL Differential Comment Prothrombin Time 11.4 SEC Prothromb Time International 1.0 RATIO Ratio Activated Partial 27.6 SEC Thromboplast Time Sodium Level 139 MEQ/L Potassium Level 3.9 MEQ/L Chloride Level 105 MEQ/L Carbon Dioxide Level 28.6 MEQ/L Anion Gap 5 MEQ/L Blood Urea Nitrogen 10 MG/DL Creatinine 0.91 MG/DL Estimat Glomerular Filtration 63 ML/MIN Rate Random Glucose 90 MG/DL Calcium Level 8.9 MG/DL (Shania Hanson) Result Diagram: 07/13/16 1521 07/13/16 1521 Imaging Last Impressions Hip and Pelvis X-Ray 07/13/16 0000 Signed Impressions: Service Date/Time: Wednesday, July 13, 2016 14:57 - CONCLUSION: Acute left pubic body fracture. Possible right-sided sacral fracture. Power Lai MD Chest X-Ray 07/13/16 0000 Signed Impressions: Service Date/Time: Wednesday, July 13, 2016 14:52 - CONCLUSION: 1. Radiopaque density projecting over the right upper chest and lower neck I believe is external to the patient. Osseous structures are intact. 2. Limited anatomic detail of the lungs due to overpenetration. No obvious infiltrate. Subtle pneumothorax cannot be excluded, however. Miguel A Manrique MD Abdomen/Pelvis CT 07/13/16 0000 Signed Impressions: Service Date/Time: Wednesday, July 13, 2016 16:03 - CONCLUSION: 1. Left-sided nondisplaced pubic body/superior pubic ramus fracture and right-sided nondisplaced sacral ala fracture. 2. Distended gallbladder with gallstones. Mildly prominent intrahepatic and extrahepatic biliary ducts. Power Lai MD Course see medical records (Shania Hanson) Assessment & Plan Problem List: (1) Fall from horse (2) Closed sacral fracture (3) Fracture of left superior pubic ramus with routine healing (4) Major depression Assessment and Plan The findings were discussed with the patient. Dr John Quinonez has reviewed images and details of this case. Recommendations are given for non-operative management at this time. Progress physical therapy for mobilization and pain control. Weight bearing as tolerated, will most likely need assistance of walker. Continue pain control per medicine. Recommended orthopedic follow up in 7-10 days. Further displacement of the fracture site may require fixation. The possibility of future surgical treatment was discussed with the patient in detail, the patient acknowledges full understanding. Orthopedic clear for discharge at this time. Would recommend home health per patient's wishes. Appreciate orthopedic involvement in patient's care. (Shania Hanson) Assessment and Plan The exam, history, and the medical decision-making described in the above note were completed with the assistance of the mid-level provider. I reviewed and agree with the findings presented. I attest that I had a [id number] encounter with the patient on the same day, and personally performed and documented my assessment and findings in the medical record. (John Quinonez MD) Shania Hanson Jul 14, 2016 16:01 John Quinonez MD Jul 14, 2016 16:17
[2016-07-14 20:00] VITALS: BP_SYST 103; BP_SYST 96; BP_DIAS 64; BP_DIAS 65; PULSE 72; PULSE 84; RESP 18; RESP 20; TEMP 97.8; O2SAT 94; O2SAT 98
[2016-07-14] MEDS: AMITRIPTYLINE HCL 100 MG TAB PO SCH (22:05)
[2016-07-15] VITALS: BP 111/65; PULSE 93; RESP 18; TEMP 97.1; O2SAT 96
[2016-07-15 04:00] VITALS: BP 116/69; PULSE 97; RESP 20; TEMP 97.8; O2SAT 96
[2016-07-15] MEDS: MECLIZINE HCL 25 MG TAB PO SCH ×3 (06:00→20:32)
[2016-07-15] MEDS: LEVOTHYROXINE SODIUM 75 MCG TAB PO SCH (06:47)
[2016-07-15 07:25] VITALS: BP 112/72; PULSE 100; RESP 18; TEMP 96.9; O2SAT 96
--- NOTE | 2016-07-15 07:57 | RADRPT ---
EXAM DATE/TIME: 07/15/2016 07:42 [facility] COMPARISON: CT BRAIN W/O CONTRAST, May 01, 2016, 17:05. INDICATIONS : Altered mental status. Patient was kicked by a horse. RADIATION DOSE: 42.98 CTDIvol (mGy) MEDICAL HISTORY : Cardiovascular disease. SURGICAL HISTORY : Tonsillectomy. Hysterectomy. ENCOUNTER: Initial ACUITY: 1 day PAIN SCALE: Non-responsive LOCATION: cranial TECHNIQUE: Multiple contiguous axial images were obtained of the head. Using automated exposure control and adj ustment of the mA and/or kV according to patient size, radiation dose was kept as low as reasonably a chievable to obtain optimal diagnostic quality images. FINDINGS: CEREBRUM: The ventricles are normal for age. No evidence of midline shift, mass lesion, hemorrhage or acute in farction. No extra-axial fluid collections are seen. POSTERIOR FOSSA: The cerebellum and brainstem are intact. The 4th ventricle is midline. The cerebellopontine angle i s unremarkable. EXTRACRANIAL: The visualized portion of the orbits is intact. SKULL: The calvaria is intact. No evidence of skull fracture. CONCLUSION: No acute intracranial findings. Power Lai MD on July 15, 2016 at 7:53 Board Certified Radiologist. This report was verified electronically.
[2016-07-15] MEDS: DULoxetine HCl DR 60 MG CAP PO SCH (08:55)
[2016-07-15] MEDS: METHOCARBAMOL 500 MG TAB PO SCH ×3 (08:55→20:30)
[2016-07-15] MEDS: oxyCODONE/ACETAMINOPHEN 10 MG/325 MG TAB PO PRN (08:55)
[2016-07-15] MEDS: ASPIRIN EC 81 MG TABEC PO SCH (08:55)
[2016-07-15] MEDS: BACLOFEN 20 MG TAB PO SCH ×2 (08:56→14:12)
[2016-07-15] MEDS: CITALOPRAM HYDROBROMIDE 40 MG TAB PO SCH (08:56)
[2016-07-15] MEDS: PANTOPRAZOLE SOD 40 MG DELAYED RELEASE TAB PO SCH (08:56)
[2016-07-15] MEDS: clonazePAM 1 MG TAB PO SCH ×2 (08:56→14:12)
[2016-07-15] MEDS: DOCUSATE SODIUM 50 MG/SENNA 8.6 MG TAB PO SCH ×2 (08:56→20:30)
[2016-07-15] MEDS: MELOXICAM 15 MG TAB PO SCH (08:56)
[2016-07-15] MEDS: ESTRADIOL 1 MG TAB PO SCH (08:56)
[2016-07-15] MEDS: SODIUM CHLORIDE 0.9% FLUSH 10 ML FLUSH IV FLUSH SCH ×2 (09:00→20:32)
--- NOTE | 2016-07-15 10:27 | HHI.PR ---
Subjective Remarks pt had episode of disorientation today will need neuro paz ct neg may have been seizure or med related will decrease pain meds Objective Vital Signs Date Time Temp Pulse Resp B/P Pulse Ox O2 Delivery O2 Flow Rate FiO2 07/15/16 07:25 96.9 100 18 112/72 96 07/15/16 04:00 97.8 97 20 116/69 96 07/15/16 00:00 97.1 93 18 111/65 96 07/14/16 20:00 97.8 84 18 96/64 94 07/14/16 16:00 96.0 83 18 93/58 93 07/14/16 12:00 97.7 90 18 86/54 95 I/O 07/14/16 07/14/16 07/14/16 07/15/16 07/15/16 07/15/16 07:00 15:00 23:00 07:00 15:00 23:00 Intake Total 480 ml 1380 ml 240 ml Balance 480 ml 1380 ml 240 ml Intake Oral 480 ml 1380 ml 240 ml # Voids 2 4 2 # Bowel Movements 0 1 1 Result Diagram: 07/13/16 1521 07/13/16 1521 Imaging Last [address] 07/15/16 0000 Signed Impressions: Service Date/Time: Friday, July 15, 2016 07:42 - CONCLUSION: No acute intracranial findings. Power Lai MD Objective Remarks GENERAL: SKIN: Warm and dry. HEAD: Atraumatic. Normocephalic. EYES: Pupils equal and round. No scleral icterus. No injection or drainage. ENT: No nasal bleeding or discharge. Mucous membranes pink and moist. NECK: Trachea midline. No JVD. CARDIOVASCULAR: Regular rate and rhythm. RESPIRATORY: No accessory muscle use. Clear to auscultation. Breath sounds equal bilaterally. GASTROINTESTINAL: Abdomen soft, non-tender, nondistended. Hepatic and splenic margins not palpable. MUSCULOSKELETAL: Extremities without clubbing, cyanosis, or edema. No obvious deformities. NEUROLOGICAL: Awake but definitely slowed may be post ictal PSYCHIATRIC: Appropriate mood and affect; insight and judgment normal. Medications and IVs Current Medications Sodium Chloride (NS 1000 ml Inj) 1,000 ml @ 2,000 mls/hr Q30M ONCE IV Last administered on 07/13/16t 15:34; Start 07/13/16 at 14:45; Stop 07/13/16 at 15:14; Status DC Ondansetron HCl (Zofran Inj) 4 mg ONCE ONCE IV Last administered on 07/13/16 15:35; Start 07/13/16 at 14:45; Stop 07/13/16 at 14:46; Status DC Hydromorphone HCl (Dilaudid Pf Inj) 0.5 mg ONCE ONCE IVS Last administered on 07/13/16 15:35; Start 07/13/16 at 14:45; Stop 07/13/16 at 14:46; Status DC Iohexol (Omnipaque 350 Inj) 100 ml STK-MED ONCE IV Last administered on 16:26; Start 07/13/16 at 16:26; Stop 07/13/16 at 16:27; Status DC Hydromorphone HCl (Dilaudid Pf Inj) 1 mg ONCE ONCE IVS Last administered on 17:07; Start 07/13/16 at 16:45; Stop 07/13/16 at 16:46; Status DC Hydromorphone HCl (Dilaudid Pf Inj) 1 mg ONCE ONCE IVS Last administered on 19:57; Start 07/13/16 at 18:45; Stop 07/13/16 at 18:46; Status DC Amitriptyline HCl (Elavil) 100 mg HS PO Last administered on 07/14/16 22:05; Start 07/13/16 at 21:00 Aspirin (Ecotrin Ec) 81 mg DAILY PO Last administered on 07/15/16 08:55; Start 07/14/16 at 09:00 Baclofen (Lioresal) 20 mg QID PO Last administered on 07/15/16 08:56; Start 07/13/16 at 21:00 Citalopram Hydrobromide (CeleXA) 40 mg DAILY PO Last administered on 07/15/16 08:56; Start 07/14/16 at 09:00 Clonazepam (KlonoPIN) 1 mg QID PO Last administered on 07/15/16 08:56; Start at 21:00 Duloxetine HCl (Cymbalta Dr) 60 mg DAILY PO Last administered on 07/15/16 08:55 ; Start 07/14/16 at 09:00 Estradiol (Estradiol) 1 mg DAILY PO Last administered on 07/15/16 08:56; Start 07/14/16 at 09:00 Acetaminophen/ Hydrocodone Bitart ([place] 5-325 Mg) 2 tab Q4HR PRN PO PAIN SCALE 3 TO 5 Last administered on 07/14/16 11:25; Start 07/13/16 at 19:30 Levothyroxine Sodium (Synthroid) 75 mcg DAILY@06 PO Last administered on 06:47; Start 07/14/16 at 06:00 Meclizine HCl (Antivert) 25 mg Q8HR PO Last administered on 07/14/16 22:05; Start 07/13/16 at 22:00 Meloxicam (Mobic) 15 mg DAILY PO Last administered on 07/15/16 08:56; Start 07/14/16 at 09:00 Pantoprazole Sodium (Protonix) 40 mg DAILY PO Last administered on 07/15/16 08: 56; Start 07/14/16 at 09:00 Tramadol HCl (Ultram) 50 mg Q6H PRN PO PAIN 1-2; Start 07/13/16 at 19:30 Methocarbamol (Robaxin) 750 mg TID PO Last administered on 07/15/16 08:55; Start 07/14/16 at 09:00 Sodium Chloride (NS Flush) 2 ml UNSCH PRN IV FLUSH FLUSH AFTER USING IV ACCESS ; Start 07/13/16 at 19:30 Sodium Chloride (NS Flush) 2 ml BID IV FLUSH Last administered on 07/15/16 09: 00; Start 07/13/16 at 21:00 Naloxone HCl (Narcan Inj) 0.4 mg UNSCH PRN IV SEE LABEL COMMENTS; Start at 19:30 Senna/Docusate Sodium (Jen-Colace) 1 tab BID PO Last administered on 07/15/16 08:56; Start 07/13/16 at 21:00 Magnesium Hydroxide (Milk Of Magnesia Liq) 30 ml Q12H PRN PO MILD - MODERATE CONSTIPATION; Start 07/13/16 at 19:30 Sennosides (Senokot) 17.2 mg Q12H PRN PO MODERATE - SEVERE CONSTIPATION; Start 07/13/16 at 19:30 Bisacodyl (Dulcolax Supp) 10 mg DAILY PRN RECTAL SEVERE CONSITIPATION; Start at 19:30 Lactulose (Lactulose Liq) 30 ml DAILY PRN PO SEVERE CONSITIPATION; Start at 19:30 Hydromorphone HCl (Dilaudid Pf Inj) 0.5 mg Q2H PRN IV BREAKTHROUGH PAIN Last administered on 07/14/16 08:13; Start 07/13/16 at 23:30; Stop 07/14/16 at 10:30; Status DC Oxycodone/ Acetaminophen (Percocet 10-325 Mg) 1 tab Q4H PRN PO PAIN SCALE 6 TO 10 Last administered on 07/15/16 08:55; Start 07/14/16 at 10:30 Assessment and Plan Problem List: (1) Pelvic fracture Status: Acute Plan: analgesics will need to be off iv pain meds and able to ambulate with assist per PT to be dc home (2) Impaired cognition Status: Acute Plan: neuro consult probable EEG will reduce narcotics Problem Qualifiers (1) Pelvic fracture: Qualified Code: S32.9XXA - Closed nondisplaced fracture of pelvis, unspecified part of pelvis, initial encounter Jose Manuel Darnell DO Jul 15, 2016 10:27
[2016-07-15 10:33] LABS: AUTOMATED NEUTROPHIL # 4.1 TH/MM3 (1.8-7.7); BASOPHIL % 0.6 % (0.0-2.0); EOSINOPHIL # 0.1 TH/MM3 (0-0.4); HEMATOCRIT 29.9 % (35.0-46.0); HEMO FLAGS DIFF FINAL; LYMPH % 17.4 % (9.0-44.0); MEAN CELL VOLUME 89.4 FL (80.0-100.0); MEAN CORPUSCULAR HEMOGLOBIN 30.8 PG (27.0-34.0); MEAN CORPUSCULAR HGB CONC 34.5 % (32.0-36.0); MONO % 9.7 % (0.0-8.0); NEUT % 70.3 % (16.0-70.0); PLATELET COUNT 191 TH/MM3 (150-450); RED BLOOD COUNT 3.34 MIL/MM3 (4.00-5.30); RED CELL DISTRIBUTION WIDTH 12.8 % (11.6-17.2); WHITE BLOOD COUNT 5.9 TH/MM3 (4.0-11.0)
[2016-07-15 10:50] LABS: BICARBONATE 29.9 MEQ/L (21.0-32.0); POTASSIUM 3.6 MEQ/L (3.5-5.1)
[2016-07-15 11:50] VITALS: BP 99/63; PULSE 88; RESP 18; TEMP 97.1; O2SAT 96
[2016-07-15 16:00] VITALS: BP 99/61; PULSE 93; RESP 18; TEMP 97.2; O2SAT 98
[2016-07-15] MEDS ORDERED: PILL SPLITTER OTHER PRN (17:15)
[2016-07-15] MEDS: ACETAMINOPHEN/HYDROcodone 325 MG/5 MG TAB PO PRN (17:33)
[2016-07-15 20:00] VITALS: BP 115/66; PULSE 82; RESP 18; TEMP 98.1; O2SAT 95
[2016-07-15] MEDS: AMITRIPTYLINE HCL 100 MG TAB PO SCH (20:30)
[2016-07-16] VITALS: BP 109/66; PULSE 91; RESP 18; TEMP 98; O2SAT 96
[2016-07-16 04:00] VITALS: BP 135/99; PULSE 85; RESP 20; TEMP 98.6; O2SAT 97
[2016-07-16] MEDS: LEVOTHYROXINE SODIUM 75 MCG TAB PO SCH (05:28)
[2016-07-16] MEDS: MECLIZINE HCL 25 MG TAB PO SCH ×3 (05:29→21:10)
[2016-07-16] MEDS: ACETAMINOPHEN/HYDROcodone 325 MG/5 MG TAB PO PRN ×4 (05:57→18:55)
--- NOTE | 2016-07-16 06:33 | MB ---
cc: JUAN A MURDOCK DATE OF CONSULTATION 07/15/2016 REASON FOR CONSULTATION Possible seizures. HISTORY OF PRESENT ILLNESS Ms. Mccain is a 60-year-old female who presented to the [facility] Emergency Room after she had sustained an injury from being thrown off her horse. She states that she had a helmet on and she landed on her back in the right hip with immediate lower back pain. Radiological images revealed a left-sided nondisplaced pubic body superior pubic ramus fracture and right-sided nondisplaced sacral ala fracture. She was admitted for pain control and she also states that she was thrown off the horse several months ago and sustained a right wrist injury with left shoulder and two lumbar compression fractures. The patient is currently on several pain medications - Percocet, baclofen 20 mg three times daily, Robaxin 750 mg three times daily, clonazepam 1 mg three times daily. The patient was noted today with stuttering and difficulty finding words and there was Neurology was consulted for evaluation of possible seizures. During the encounter the patient states that, "At times I am not making any sense and I have difficulty finding words." The patient was noted to be anxious during the encounter. However, denies headache, double vision, blurred vision, facial numbness, facial droopiness, weakness of an extremity, absence of consciousness or disturbed consciousness. She denies similar episodes in the past. REVIEW OF SYSTEMS A 12-point review of systems is negative except for what is stated in the HPI. PAST MEDICAL HISTORY Multiple falls from her horse with a fracture of pubic ramus and lower back injury. PAST SURGICAL HISTORY ORIF to the shoulder. ALLERGIES MORPHINE. MEDICATIONS 1. Klonopin. 2. Duloxetine. 3. Celexa. 4. Aspirin. 5. Levothyroxine. 6. Estradiol. 7. Robaxin. 8. Vowinckel. 9. Amitriptyline. 10. Protonix. FAMILY HISTORY Mother still living. Father disease with heart disease. SOCIAL HISTORY Denies smoking. Occasionally drinks alcohol. Denies illicit drug abuse. PHYSICAL EXAMINATION GENERAL: Awake, alert, good historian. Stuttering of words at times. Looks anxious. HEENT: Atraumatic, normocephalic. Intact hearing and vision. NECK: Trachea in the midline. Supple. No signs of meningeal irritation. CARDIOVASCULAR: Regular rate and rhythm. RESPIRATORY: Clear to auscultation. No wheezes. GASTROINTESTINAL: Soft abdomen. No tenderness. MUSCULOSKELETAL: Extremities without clubbing, cyanosis or edema.No joint tenderness. NEUROLOGIC: Awake, alert, oriented to time, person and place. No dysarthria, no dysphagia. Occasional intermittent stuttering of words. Cranial nerve examination II-XII grossly intact. Motor system examination: 5/5 bilateral, symmetrical throughout. No abnormal tone. No abnormal movements. Sensation intact bilateral and symmetrical to light touch, temperature and pain. Reflexes 2+ bilateral, symmetrical. Plantar reflexes are bilaterally downgoing. Finger- to-nose, [id number] are bilaterally intact. Psychological - Intact mood and behavior. No hallucinations. LABORATORY DATA White blood count 5.9, hemoglobin 10.3, MCV 89.4, platelet 191. Sodium 139, potassium 3.6, BUN 6, calcium 8.3.INR 1. DIAGNOSTIC IMAGING STUDIES - Head CT scan without contrast was unremarkable with no acute intracranial findings. - Hip x-ray revealed acute left pubic body fracture, possible right side sacral fracture. DIAGNOSTIC IMPRESSION 1. Stuttering of speech. 2. Pelvic fracture. 3. Chronic musculoskeletal pain. 4. Status post multiple falls. PLAN 1. Neuro checks q. 4 hours. 2. I explained to the patient that stuttering may be related to medication overdose and anxiety and also can be part of a post-concussion syndrome. 3. Decrease the medication. Discontinue Percocet and cut the Vowinckel dose in half. 4. Discontinue baclofen. 5. Robaxin 750 nocturnal instead of three times daily. 6. Continue Klonopin. 7. The patient is on several pain medications, opiates, muscle relaxants. I recommended and explained to the patient that lowering and cutting of some medication would be beneficial for her. She understands and agrees. 8. DVT prophylaxis. 9. Fall precautions. Thank you for the opportunity to participate in the care of your patient. MD PATRIC Chen/CALI /11:29 PM /6:17 AM OSMAN
--- NOTE | 2016-07-16 08:00 | HHI.PR ---
Subjective Remarks pt had episode of disorientation yesterday more alert today Objective Vital Signs Date Time Temp Pulse Resp B/P Pulse Ox O2 Delivery O2 Flow Rate FiO2 07/16/16 04:00 98.6 85 20 135/99 97 07/16/16 00:00 98.0 91 18 109/66 96 07/15/16 20:00 98.1 82 18 115/66 95 07/15/16 16:00 97.2 93 18 99/61 98 07/15/16 11:50 97.1 88 18 99/63 96 I/O 07/15/16 07/15/16 07/15/16 07/16/16 07/16/16 07/16/16 07:00 15:00 23:00 07:00 15:00 23:00 Intake Total 240 ml 240 ml 780 ml 240 ml Balance 240 ml 240 ml 780 ml 240 ml Intake Oral 240 ml 240 ml 780 ml 240 ml # Voids 2 4 2 3 # Bowel Movements 1 0 0 0 Result Diagram: 07/15/16 1019 07/15/16 1019 Imaging Last [address] 07/15/16 0000 Signed Impressions: Service Date/Time: Friday, July 15, 2016 07:42 - CONCLUSION: No acute intracranial findings. Power Lai MD Objective Remarks GENERAL: SKIN: Warm and dry. HEAD: Atraumatic. Normocephalic. EYES: Pupils equal and round. No scleral icterus. No injection or drainage. ENT: No nasal bleeding or discharge. Mucous membranes pink and moist. NECK: Trachea midline. No JVD. CARDIOVASCULAR: Regular rate and rhythm. RESPIRATORY: No accessory muscle use. Clear to auscultation. Breath sounds equal bilaterally. GASTROINTESTINAL: Abdomen soft, non-tender, nondistended. Hepatic and splenic margins not palpable. MUSCULOSKELETAL: Extremities without clubbing, cyanosis, or edema. No obvious deformities. NEUROLOGICAL: Awake alert and oriented today PSYCHIATRIC: Appropriate mood and affect; insight and judgment normal. Medications and IVs Current Medications Sodium Chloride (NS 1000 ml Inj) 1,000 ml @ 2,000 mls/hr Q30M ONCE IV Last administered on 07/13/16t 15:34; Start 07/13/16 at 14:45; Stop 07/13/16 at 15:14; Status DC Ondansetron HCl (Zofran Inj) 4 mg ONCE ONCE IV Last administered on 07/13/16 15:35; Start 07/13/16 at 14:45; Stop 07/13/16 at 14:46; Status DC Hydromorphone HCl (Dilaudid Pf Inj) 0.5 mg ONCE ONCE IVS Last administered on 07/13/16 15:35; Start 07/13/16 at 14:45; Stop 07/13/16 at 14:46; Status DC Iohexol (Omnipaque 350 Inj) 100 ml STK-MED ONCE IV Last administered on 16:26; Start 07/13/16 at 16:26; Stop 07/13/16 at 16:27; Status DC Hydromorphone HCl (Dilaudid Pf Inj) 1 mg ONCE ONCE IVS Last administered on 17:07; Start 07/13/16 at 16:45; Stop 07/13/16 at 16:46; Status DC Hydromorphone HCl (Dilaudid Pf Inj) 1 mg ONCE ONCE IVS Last administered on 19:57; Start 07/13/16 at 18:45; Stop 07/13/16 at 18:46; Status DC Amitriptyline HCl (Elavil) 100 mg HS PO Last administered on 07/15/16 20:30; Start 07/13/16 at 21:00 Aspirin (Ecotrin Ec) 81 mg DAILY PO Last administered on 07/15/16 08:55; Start 07/14/16 at 09:00 Baclofen (Lioresal) 20 mg QID PO Last administered on 07/15/16 14:12; Start 07/13/16 at 21:00; Stop 07/15/16 at 16:29; Status DC Citalopram Hydrobromide (CeleXA) 40 mg DAILY PO Last administered on 07/15/16 08:56; Start 07/14/16 at 09:00 Clonazepam (KlonoPIN) 1 mg QID PO Last administered on 07/15/16 14:12; Start at 21:00; Stop 07/15/16 at 16:31; Status DC Duloxetine HCl (Cymbalta Dr) 60 mg DAILY PO Last administered on 07/15/16 08:55 ; Start 07/14/16 at 09:00 Estradiol (Estradiol) 1 mg DAILY PO Last administered on 07/15/16 08:56; Start 07/14/16 at 09:00 Acetaminophen/ Hydrocodone Bitart ([place] 5-325 Mg) 2 tab Q4HR PRN PO PAIN SCALE 3 TO 5 Last administered on 07/16/16 05:57; Start 07/13/16 at 19:30 Levothyroxine Sodium (Synthroid) 75 mcg DAILY@06 PO Last administered on 05:28; Start 07/14/16 at 06:00 Meclizine HCl (Antivert) 25 mg Q8HR PO Last administered on 07/14/16 22:05; Start 07/13/16 at 22:00 Meloxicam (Mobic) 15 mg DAILY PO Last administered on 07/15/16 08:56; Start 07/14/16 at 09:00 Pantoprazole Sodium (Protonix) 40 mg DAILY PO Last administered on 07/15/16 08: 56; Start 07/14/16 at 09:00 Tramadol HCl (Ultram) 50 mg Q6H PRN PO PAIN 1-2; Start 07/13/16 at 19:30 Methocarbamol (Robaxin) 750 mg TID PO Last administered on 07/15/16 14:12; Start 07/14/16 at 09:00; Stop 07/15/16 at 17:04; Status DC Sodium Chloride (NS Flush) 2 ml UNSCH PRN IV FLUSH FLUSH AFTER USING IV ACCESS ; Start 07/13/16 at 19:30 Sodium Chloride (NS Flush) 2 ml BID IV FLUSH Last administered on 07/15/16 20: 32; Start 07/13/16 at 21:00 Naloxone HCl (Narcan Inj) 0.4 mg UNSCH PRN IV SEE LABEL COMMENTS; Start at 19:30 Senna/Docusate Sodium (Jen-Colace) 1 tab BID PO Last administered on 07/15/16 20:30; Start 07/13/16 at 21:00 Magnesium Hydroxide (Milk Of Magnesia Liq) 30 ml Q12H PRN PO MILD - MODERATE CONSTIPATION; Start 07/13/16 at 19:30 Sennosides (Senokot) 17.2 mg Q12H PRN PO MODERATE - SEVERE CONSTIPATION; Start 07/13/16 at 19:30 Bisacodyl (Dulcolax Supp) 10 mg DAILY PRN RECTAL SEVERE CONSITIPATION; Start at 19:30 Lactulose (Lactulose Liq) 30 ml DAILY PRN PO SEVERE CONSITIPATION; Start at 19:30 Hydromorphone HCl (Dilaudid Pf Inj) 0.5 mg Q2H PRN IV BREAKTHROUGH PAIN Last administered on 07/14/16 08:13; Start 07/13/16 at 23:30; Stop 07/14/16 at 10:30; Status DC Oxycodone/ Acetaminophen (Percocet 10-325 Mg) 1 tab Q4H PRN PO PAIN SCALE 6 TO 10 Last administered on 07/15/16 08:55; Start 07/14/16 at 10:30; Stop 07/15/16 at 10:29; Status DC Clonazepam (KlonoPIN) 1 mg TID PRN PO ANXIETY; Start 07/15/16 at 16:30 Methocarbamol (Robaxin) 750 mg HS PO Last administered on 07/15/16 20:30; Start 07/15/16 at 21:00 Miscellaneous (Pill Splitter) 1 ea UNSCH PRN OTHER SEE LABEL COMMENTS; Start at 17:15 Assessment and Plan Problem List: (1) Pelvic fracture Status: Acute Plan: analgesics will need to be off iv pain meds and able to ambulate with assist per PT to be dc home (2) Impaired cognition Plan: neuro consult probable EEG will reduce narcotics continue neuro eval continue PT for ambulation Discharge Planning home with [facility] Problem Qualifiers (1) Pelvic fracture: Qualified Code: S32.9XXA - Closed nondisplaced fracture of pelvis, unspecified part of pelvis, initial encounter Jose Manuel Darnell DO Jul 16, 2016 08:00
[2016-07-16 08:04] VITALS: BP 121/72; PULSE 86; RESP 18; TEMP 98.4; O2SAT 96
[2016-07-16] MEDS: SODIUM CHLORIDE 0.9% FLUSH 10 ML FLUSH IV FLUSH SCH ×2 (08:20→21:00)
[2016-07-16] MEDS: DOCUSATE SODIUM 50 MG/SENNA 8.6 MG TAB PO SCH ×2 (08:24→21:08)
[2016-07-16] MEDS: MELOXICAM 15 MG TAB PO SCH (08:25)
[2016-07-16] MEDS: ESTRADIOL 1 MG TAB PO SCH (08:25)
[2016-07-16] MEDS: PANTOPRAZOLE SOD 40 MG DELAYED RELEASE TAB PO SCH (08:25)
[2016-07-16] MEDS: ASPIRIN EC 81 MG TABEC PO SCH (08:25)
[2016-07-16] MEDS: CITALOPRAM HYDROBROMIDE 40 MG TAB PO SCH (08:25)
[2016-07-16] MEDS: DULoxetine HCl DR 60 MG CAP PO SCH (08:25)
[2016-07-16 11:14] VITALS: BP 137/72; PULSE 89; RESP 16; TEMP 96.6; O2SAT 99
--- NOTE | 2016-07-16 15:39 | HHI.PR ---
Review/Management Diagnosis 1. Stuttering of speech, resolving. 2. Pelvic fracture, no surgical intervention. 3. Chronic musculoskeletal pain. 4. Status post multiple falls. Plan 1. Neuro checks q. 4 hours. 2. Patient understands well that stuttering may be related to medication overdose and anxiety and also can be part of a post-concussion syndrome. 3. Continue on current regimen and doses of pain medications [Discontinued Percocet and cut the Anna dose in half, Discontinued baclofen.] 4 Robaxin 750 nocturnal instead of three times daily. 6. Continue Klonopin half the home dose. 7. DVT prophylaxis. 8. I explained to patient that there is no evidence that an EEG study is warranted, she understands and agrees Diagnosis/Plan: Subjective Subjective Comments Patient feels better Less stuttering episodes She is happy she can speak more coherently and fluently Denies h/o seizure or childhood epilepsy Active Medications Current Medications Medications (Trade) Dose Ordered Sig/Yancy Route Start Time Stop Time Status Last Admin (Elavil) 100 mg HS PO 07/13/16 21:00 07/15/16 20:30 (Ecotrin Ec) 81 mg DAILY PO 07/14/16 09:00 07/16/16 08:25 (CeleXA) 40 mg DAILY PO 07/14/16 09:00 07/16/16 08:25 (Cymbalta Dr) 60 mg DAILY PO 07/14/16 09:00 07/16/16 08:25 (Estradiol) 1 mg DAILY PO 07/14/16 09:00 07/16/16 08:25 ([place] 5-325 Mg) 2 tab Q4HR PRN PO 07/13/16 19:30 07/16/16 15:01 (Synthroid) 75 mcg DAILY@06 PO 07/14/16 06:00 07/16/16 05:28 (Antivert) 25 mg Q8HR PO 07/13/16 22:00 07/16/16 08:25 (Mobic) 15 mg DAILY PO 07/14/16 09:00 07/16/16 08:25 (Protonix) 40 mg DAILY PO 07/14/16 09:00 07/16/16 08:25 (Ultram) 50 mg Q6H PRN PO 07/13/16 19:30 (NS Flush) 2 ml UNSCH PRN IV FLUSH 07/13/16 19:30 (NS Flush) 2 ml BID IV FLUSH 07/13/16 21:00 07/15/16 20:32 (Narcan Inj) 0.4 mg UNSCH PRN IV 07/13/16 19:30 (Jen-Colace) 1 tab BID PO 07/13/16 21:00 07/16/16 08:24 (Milk Of Magnesia Liq) 30 ml Q12H PRN PO 07/13/16 19:30 07/16/16 08:24 (Senokot) 17.2 mg Q12H PRN PO 07/13/16 19:30 (Dulcolax Supp) 10 mg DAILY PRN RECTAL 07/13/16 19:30 (Lactulose Liq) 30 ml DAILY PRN PO 07/13/16 19:30 07/16/16 08:24 (KlonoPIN) 1 mg TID PRN PO 07/15/16 16:30 (Robaxin) 750 mg HS PO 07/15/16 21:00 07/15/16 20:30 (Pill Splitter) 1 ea UNSCH PRN OTHER 07/15/16 17:15 Allergies Allergies Coded Allergies Morphine (Verified Allergy, Intermediate, Nausea/Vomiting, 07/13/16) Exam I&O / VS 07/15/16 07/15/16 07/16/16 15:00 23:00 07:00 Intake Total 240 ml 780 ml 240 ml Balance 240 ml 780 ml 240 ml Intake Oral 240 ml 780 ml 240 ml # Voids 4 2 3 # Bowel Movements 0 0 0 Vital Signs Date Time Temp Pulse Resp B/P Pulse Ox O2 Delivery O2 Flow Rate FiO2 07/16/16 11:14 96.6 89 16 137/72 99 07/16/16 08:18 Room Air 07/16/16 08:04 98.4 86 18 121/72 96 07/16/16 04:00 98.6 85 20 135/99 97 07/16/16 00:00 98.0 91 18 109/66 96 07/15/16 20:00 98.1 82 18 115/66 95 07/15/16 16:00 97.2 93 18 99/61 98 Respiratory: Lungs CTA, Non-labored respirations, BS equal Cardiology: Normal rate, Regular Rhythm Musculoskeletal: Tenderness, Swelling Exam Comments GENERAL: Awake, alert, good historian. subtle stuttering of words, less anxious HEENT: Atraumatic, normocephalic. Intact hearing and vision. NECK: Trachea in the midline. Supple. No signs of meningeal irritation. CARDIOVASCULAR: Regular rate and rhythm. RESPIRATORY: Clear to auscultation. No wheezes. GASTROINTESTINAL: Soft abdomen. No tenderness. MUSCULOSKELETAL: Extremities without clubbing, cyanosis or edema.No joint tenderness. NEUROLOGIC: Awake, alert, oriented to time, person and place. No dysarthria, no dysphagia. Occasional intermittent stuttering of words. Cranial nerve examination II-XII grossly intact. Motor system examination: 5/5 bilateral, symmetrical throughout. No abnormal tone. No abnormal movements. Sensation intact bilateral and symmetrical to light touch, temperature and pain. Reflexes 2+ bilateral, symmetrical. Plantar reflexes are bilaterally downgoing. Finger- to-nose, [id number] are bilaterally intact. Psychological - Intact mood and behavior. No hallucinations. Objective Radiology Results Last [address] 07/15/16 0000 Signed Impressions: Service Date/Time: Friday, July 15, 2016 07:42 - CONCLUSION: No acute intracranial findings. MD Lindsay Patel Raid G. MD Jul 16, 2016 15:39
[2016-07-16 16:18] VITALS: BP 103/66; PULSE 82; RESP 16; TEMP 96.4; O2SAT 97
[2016-07-16] MEDS: clonazePAM 1 MG TAB PO PRN (18:57)
[2016-07-16 20:38] VITALS: BP 102/57; PULSE 92; RESP 19; TEMP 97.2; O2SAT 98
[2016-07-16] MEDS: METHOCARBAMOL 500 MG TAB PO SCH (21:08)
[2016-07-16] MEDS: AMITRIPTYLINE HCL 100 MG TAB PO SCH (21:08)
[2016-07-17 00:35] VITALS: BP 90/46; PULSE 89; RESP 18; TEMP 96.7; O2SAT 95
[2016-07-17] MEDS: ACETAMINOPHEN/HYDROcodone 325 MG/5 MG TAB PO PRN ×2 (04:45→10:38)
[2016-07-17] MEDS: LEVOTHYROXINE SODIUM 75 MCG TAB PO SCH (05:31)
[2016-07-17] MEDS: MECLIZINE HCL 25 MG TAB PO SCH ×2 (05:31→12:51)
[2016-07-17] MEDS: clonazePAM 1 MG TAB PO PRN ×2 (05:35→12:51)
[2016-07-17] MEDS ORDERED: METH500T3 PO (07:30)
[2016-07-17] MEDS ORDERED: CLON1 PO (07:30)
[2016-07-17] MEDS ORDERED: ROLLER WALKER1 MI1 (07:33)
--- NOTE | 2016-07-17 07:35 | HHI.FF ---
Face to Face Verification Diagnosis: (1) Impaired activities of daily living (2) Fall from horse (3) Fracture of left superior pubic ramus with routine healing Physical Therapy Order: Evaluate and Treat, Improve ambulation, Strength and gait training Occupational Therapy Order: Evaluate and Treat, Improve ADL Home Health Nursing Order: Medical education Signs/symptoms of disease process Home Health Aide Order: To Assist In: Bathing and personal care [employer] Offbearer Order: To Evaluate: Living conditions/environment, Support services I have seen patient Thea Mccain on 07/17/16. My clinical findings support the need for the requested home health care services because: Need for psychosocial assistance High risk of falls I certify that my clinical findings support that this patient is homebound because: Unsteady gait/balance Kathy Florentino Jul 17, 2016 07:35
--- NOTE | 2016-07-17 07:46 | HHI.DS ---
Discharge Summary Admission Date Jul 13, 2016 at 18:16 Admitting Diagnosis acute bilateral nondisplaced pelvic fxs,inability to amb (1) Fall from horse Diagnosis: Principal (2) Fracture of left superior pubic ramus with routine healing (3) Closed sacral fracture (4) Fibromyalgia (5) Major depression Brief History This patient was riding a horse and had a helmet on. She was thrown from the horse and landed on her right hip. He was not able to get up. Complains of right hip and pelvic pain. She did not strike her head. She has no head or neck pain. She has a past medical history of depression, anxiety, fibromyalgia, GERD, and hypothyroidism. CBC/BMP: 07/15/16 1019 07/15/16 1019 Significant Findings Laboratory Tests Test 07/15/16 10:19 Red Blood Count 3.34 MIL/MM3 (4.00-5.30) Hemoglobin 10.3 GM/DL (11.6-15.3) Hematocrit 29.9 % (35.0-46.0) Mean Platelet Volume 6.6 FL (7.0-11.0) Neutrophils (%) (Auto) 70.3 % (16.0-70.0) Monocytes (%) (Auto) 9.7 % (0.0-8.0) Anion Gap 4 MEQ/L (5-15) Blood Urea Nitrogen 6 MG/DL (7-18) Estimat Glomerular Filtration 79 ML/MIN (>89) Rate Calcium Level 8.3 MG/DL (8.5-10.1) PE at Discharge GENERAL: Alert and oriented SKIN: Warm and dry. HEAD: Normocephalic. EYES: No scleral icterus. No injection or drainage. NECK: Supple, trachea midline. No JVD or lymphadenopathy. CARDIOVASCULAR: Regular rate and rhythm without murmurs, gallops, or rubs. RESPIRATORY: Breath sounds equal bilaterally. No accessory muscle use. GASTROINTESTINAL: Abdomen soft, non-tender, nondistended. MUSCULOSKELETAL: No cyanosis, or edema. BACK: Nontender without obvious deformity. No CVA tenderness. Hospital Course This patient was riding a horse and had a helmet on. She was thrown from the horse and landed on her right hip. He was not able to get up. Complains of right hip and pelvic pain. She did not strike her head. She has no head or neck pain. She has a past medical history of depression, anxiety, fibromyalgia, GERD, and hypothyroidism. Patient sustained an closed sacral Fx and Fx of left supine pubic ramus. Recommendations are given for non-operative management at this time. Progress physical therapy for mobilization and pain control. Weight bearing as tolerated, will most likely need assistance of walker. Continue pain control per medicine. Recommended orthopedic follow up in 7-10 days. Further displacement of the fracture site may require fixation. The possibility of future surgical treatment was discussed with the patient in detail, the patient acknowledges full understanding. Orthopedic clear for discharge at this time. Would recommend home health per patient's wishes. Appreciate orthopedic involvement in patient's care. Patient was also found to have stuttering yesterday and was seen by neurology. May be related to medication overdose, anxiety, or post concussion syndrome. Medication recommendations where given and plan is for discharge with these recommendations. Patient is discharged home with HHC, PT, and OT. Follow up appt with ortho and Dr. Darnell. * Pt Condition on Discharge: Stable Discharge Disposition: Disch w/ Home Health Serv Discharge Instructions DIET: Follow Instructions for: As Tolerated, No Restrictions Activities you can perform: Regular-No Restrictions Activities to avoid: Driving for 24 hrs, Contact Sports, Lifting/Bending, Weight Bearing, Prolonged Standing, Strenuous Activity Follow up Referrals: Appointment for Follow Up PCP Follow-up New Medications: Misc. Devices (Roller Walker) 1 Mis Mis 1 EA .ROUTE NOW PRN MUSCLE SPASM #1 EA Clonazepam (Klonopin) 1 Mg Tab 0.5 MG PO QID PRN ANXIETY #120 TAB Methocarbamol (Methocarbamol) 500 Mg Tab 750 MG PO HS Pain Management #30 TAB Continued Medications: Amitriptyline (Amitriptyline) 100 Mg Tab 100 MG PO HS TAB Aspirin DR (Aspirin EC) 81 Mg Tabdr 81 MG PO DAILY #30 Ref 1 TAB Citalopram (Celexa) 40 Mg Tab 40 MG PO DAILY Depression Control #[address] (Duloxetine DR) 60 Mg Capdr 60 MG PO DAILY Depression Control #60 CAP Estradiol (Estradiol) 1 Mg Tab 1 MG PO DAILY Estrogen Supplements #30 Ref 1 TAB Hydrocodone-Acetaminophen ([place]) 5-325 mg Tab 2 TAB PO Q4HR PRN PAIN SCALE 6 TO 10 Ref 0 TAB Levothyroxine (Levothyroxine) 75 Mcg Tab 75 MCG PO DAILY Thyroid #30 Ref 1 TAB Meclizine (Meclizine) 25 Mg Tab 25 MG PO Q8HR PRN DIZZINESS Ref 0 TAB Meloxicam (Meloxicam) 15 Mg Tab 15 MG PO DAILY Arthritis Pain #30 Ref 0 TAB Pantoprazole (Protonix) 40 Mg Tab 40 MG PO DAILY Reflux #30 Ref 0 TAB Discontinued Medications: Clonazepam (Klonopin) 1 Mg Tab 1 MG PO QID anxiety #90 Ref 1 TAB Methocarbamol (Robaxin) 750 Mg Tab 750 MG PO TID 0900 1300 1999 Muscle Spasm Ref 0 TAB Kathy Florentino Jul 17, 2016 07:46
[2016-07-17 08:00] VITALS: BP 109/64; PULSE 79; RESP 16; TEMP 96.6; O2SAT 94
[2016-07-17] MEDS: SODIUM CHLORIDE 0.9% FLUSH 10 ML FLUSH IV FLUSH SCH (09:00)
[2016-07-17] MEDS: DOCUSATE SODIUM 50 MG/SENNA 8.6 MG TAB PO SCH (09:00)
[2016-07-17] MEDS: MELOXICAM 15 MG TAB PO SCH (10:36)
[2016-07-17] MEDS: ESTRADIOL 1 MG TAB PO SCH (10:36)
[2016-07-17] MEDS: CITALOPRAM HYDROBROMIDE 40 MG TAB PO SCH (10:37)
[2016-07-17] MEDS: PANTOPRAZOLE SOD 40 MG DELAYED RELEASE TAB PO SCH (10:37)
[2016-07-17] MEDS: DULoxetine HCl DR 60 MG CAP PO SCH (10:37)
[2016-07-17] MEDS: ASPIRIN EC 81 MG TABEC PO SCH (10:37)
[2016-07-17 12:00] VITALS: BP 113/73; PULSE 80; RESP 18; TEMP 96.8; O2SAT 98
== END 2016-07-17 12:56 | disposition home health service (06) | DRG 552 ==
LOC: NEPC 14:03 → NEDA 18:16 → N06B 21:43
PROVIDERS: ADMIT Family Medicine; ATTEND Family Medicine
DX: S32.110A Nondisplaced Zone I fracture of sacrum, initial encounter for closed fracture (principal); S32.592A Other specified fracture of left pubis, initial encounter for closed fracture; V80.010A Animal-rider injured by fall from or being thrown from horse in noncollision accident, initial encounter; Y93.52 Activity, horseback riding; F41.9 Anxiety disorder, unspecified; F32.9 Major depressive disorder, single episode, unspecified; M79.7 Fibromyalgia; K21.9 Gastro-esophageal reflux disease without esophagitis; E03.9 Hypothyroidism, unspecified; S32.009D Unspecified fracture of unspecified lumbar vertebra, subsequent encounter for fracture with routine healing; S62.101D Fracture of unspecified carpal bone, right wrist, subsequent encounter for fracture with routine healing; S42.92XD Fracture of left shoulder girdle, part unspecified, subsequent encounter for fracture with routine healing; R47.82 Fluency disorder in conditions classified elsewhere; G89.29 Other chronic pain; Z91.81 History of falling; F07.81 Postconcussional syndrome; T50.901A Poisoning by unspecified drugs, medicaments and biological substances, accidental (unintentional), initial encounter; Y92.239 Unspecified place in hospital as the place of occurrence of the external cause
CPT/HCPCS: 70450; 71010; 73501; 74177; 80048; 85025; 85610; 85652; 85730; 96361; 96374; 96375; J1170; J2405; J7030; Q9967

== ENCOUNTER 2016-07-19 15:28 | Emergency (ER) | payer OTHER ==
[~2016-07-19] VITALS: Ht 175.3 cm; Wt 72.0 kg
[~2016-07-19 15:28] MED LIST changes: +AMIT100T2 PO; -AMIT1TAB79 PO; -BACL20TA PO; -HYDR-3516 PO; +MELO-1 PO; +METH500T3 PO; +NORC5TAB PO; +ROLLER WALKER1 MI1; -TRAM50TA PO
[2016-07-19 15:31] VITALS: BP 135/72; PULSE 98; RESP 19; TEMP 98.6; O2SAT 96
[2016-07-19] MEDS ORDERED: PERC5TAB12 PO (16:14)
[2016-07-19] MEDS ORDERED: oxyCODONE/ACETAMINOPHEN 5 MG/325 MG TAB PO ONE (16:15)
--- NOTE | 2016-07-19 16:21 | PD ---
HPI Chief Complaint: Pain: Acute or Chronic Time Seen by Provider: 16:05 Travel History International Travel<30 days: No Contact w/Intl Traveler<30days: No Traveled to known affect area: No History of Present Illness HPI This is a 60-year-old female who presents for evaluation of pain. The patient recently sustained sacrum and pelvic fractures after being thrown off her horse. She was admitted here in July 13. In consultation she saw Dr. Quinonez the orthopedist. At the time the plan was nonoperative treatment, possibly operative treatment in the future. She was discharged earlier this week. For pain control she has been using Lortab 53 25 2 tablets every 6 hours with minimal relief. For this reason she presents requesting something stronger for pain. She denies any new injuries. She is following up with her primary care physician Dr. Darnell tomorrow. No other complaints. PFSH Past Medical History Arthritis: Yes Asthma: Yes Autoimmune Disease: No Blood Disorders: No Anxiety: Yes Depression: Yes Heart Rhythm Problems: Yes (Ocassional palpitations) Cancer: No Cardiac Catheterization: No Cardiovascular Problems: No High Cholesterol: No Chemotherapy: No Chest Pain: No Congestive Heart Failure: No COPD: No Cerebrovascular Accident: No Diabetes: No Diminished Hearing: No Endocrine: Yes Fibromyalgia: Yes Gastrointestinal Disorders: Yes (GASTROENTERITIS) GERD: Yes Genitourinary: No Headaches: Yes Hiatal Hernia: No Heparin Induced Thrombocytopen: No Hypertension: No Immune Disorder: No Implanted Vascular Access Dvce: Yes Kidney Stones: No Musculoskeletal: Yes (L CLAVICLE, R WRISYA, L3-L4) Neurologic: Yes (TBI) Psychiatric: Yes Reproductive: No Respiratory: Yes Migraines: No Pneumonia: Yes Radiation Therapy: No Renal Failure: No Seizures: No Sickle Cell Disease: No Sleep Apnea: No Thyroid Disease: Yes (hypothyroidism) Ulcer: No Menopausal: Yes : 5 Para: 5 Tubal Ligation: Yes Past Surgical History AICD: No Appendectomy: Yes Arteriovenous Shunt: No Body Medical Devices: Jaw - screws Cardiac Surgery: Yes Coronary Artery Bypass Graft: No Ear Surgery: No Endocrine Surgery: No Eye Surgery: No Genitourinary Surgery: No Gynecologic Surgery: Yes (Hysterectomy 2014) Hysterectomy: Yes Insulin Pump: No Joint Replacement: No Neurologic Surgery: No Oral Surgery: No Pacemaker: No Thoracic Surgery: No Tonsillectomy: Yes Other Surgery: Yes (2 KNEE SURGERIES, JAW SURGERY) Family History Family Myocardial Infarction: Yes (Father) Social History Alcohol Use: Yes (OCC) Tobacco Use: No Substance Use: No Allergies-Medications (Allergen,Severity, Reaction): Coded Allergies: Morphine (Verified Allergy, Intermediate, Nausea/Vomiting, 07/19/16) Reported Meds & Prescriptions Reported Meds & Active Scripts Active Percocet (Oxycodone-Acetaminophen) 5-325 mg Tab 1-2 Tab PO Q6H PRN Roller Walker (Misc. Devices) 1 Mis Mis 1 Ea .ROUTE NOW PRN Klonopin (Clonazepam) 1 Mg Tab 0.5 Mg PO QID PRN Methocarbamol 500 Mg Tab 750 Mg PO HS Duloxetine DR (Duloxetine HCl) 60 Mg Capdr 60 Mg PO DAILY Celexa (Citalopram Hydrobromide) 40 Mg Tab 40 Mg PO DAILY Aspirin EC (Aspirin) 81 Mg Tabdr 81 Mg PO DAILY Levothyroxine (Levothyroxine Sodium) 75 Mcg Tab 75 Mcg PO DAILY Estradiol 1 Mg Tab 1 Mg PO DAILY Reported Meclizine (Meclizine HCl) 25 Mg Tab 25 Mg PO Q8HR PRN Meloxicam 15 Mg Tab 15 Mg PO DAILY [place] (Hydrocodone-Acetaminophen) 5-325 mg Tab 2 Tab PO Q4HR PRN Amitriptyline (Amitriptyline HCl) 100 Mg Tab 100 Mg PO HS Protonix (Pantoprazole Sodium) 40 Mg Tab 40 Mg PO DAILY Review of Systems Except as stated in HPI: all other systems reviewed are Neg Physical Exam Narrative GENERAL: Well-developed well-nourished female in no acute distress SKIN: Warm and dry. Focus examination reveals no obvious bruising or soft tissue swelling. HEAD: Atraumatic. Normocephalic. CARDIOVASCULAR: Regular rate and rhythm. No murmur appreciated. RESPIRATORY: No accessory muscle use. Clear to auscultation. Breath sounds equal bilaterally. GASTROINTESTINAL: Abdomen soft, non-tender, nondistended. Hepatic and splenic margins not palpable. MUSCULOSKELETAL: No obvious deformities. Some tenderness to palpation of the sacrum, right pelvis region. NEUROLOGICAL: Awake and alert. No obvious cranial nerve deficits. Motor grossly within normal limits. Normal speech. Data Data Last Documented VS Vital Signs Date Time Temp Pulse Resp B/P Pulse Ox O2 Delivery O2 Flow Rate FiO2 6/8/17 15:31 98.6 98 19 135/72 96 Room Air Orders Oxycodone-Acetamin 5-325 Mg (Percocet (07/19/16 16:15) MDM Medical Decision Making Medical Screen Exam Complete: Yes Emergency Medical Condition: Yes Medical Record Reviewed: Yes Differential Diagnosis Sacrum fracture, pelvic fracture, intractable pain Narrative Course 60-year-old female presents with persistent pain after recently sustaining sacrum and pelvic fractures. Lortab has gotten very helpful with her pain control. Discussed options with the treatment and she feels that Percocet may be a reasonable alternative. The patient will be given a short course of Percocet, she is going to be following up with her primary care physician tomorrow. In the past she has seen Dr. Santacruz, she will be followed up either with him or with Dr. Quinonez. She is stable for discharge. Diagnosis Primary Impression: Closed sacral fracture Qualified Code: S32.10XD - Closed fracture of sacrum with routine healing, unspecified portion of sacrum, subsequent encounter Additional Impression: Fracture of left superior pubic ramus with routine healing Additional Instructions: Medication as needed. Follow up with her primary care physician as scheduled. Follow-up with orthopedist as previously discussed. Return for any emergent medical conditions. Med/Other Pt SpecificInfo: Prescription(s) given Scripts Oxycodone-Acetaminophen (Percocet)5-325 mg Tab1-2 Tab PO Q6H PRN (PAIN) #20 TAB Ref 0 Prov:Rosy Luke MD 07/19/16 Disposition: 01 DISCHARGE HOME Condition: Stable Hemal Davis Jul 19, 2016 16:21
== END 2016-07-19 17:57 | disposition home or self-care (01) ==
LOC: NEPK 15:28
DX: S32.10XD Unspecified fracture of sacrum, subsequent encounter for fracture with routine healing (principal); S32.592D Other specified fracture of left pubis, subsequent encounter for fracture with routine healing; V80.010D Animal-rider injured by fall from or being thrown from horse in noncollision accident, subsequent encounter
CPT/HCPCS: 99283

== ENCOUNTER 2016-07-24 00:51 | Emergency (ER) | payer OTHER ==
[~2016-07-24] VITALS: Ht 175.3 cm; Wt 76.0 kg
[~2016-07-24 00:51] MED LIST changes: +PERC5TAB12 PO
[2016-07-24 00:56] VITALS: BP 132/71; PULSE 112; RESP 20; TEMP 98.2; O2SAT 97
[2016-07-24 01:31] VITALS: BP 134/74; RESP 24
[2016-07-24] MEDS ORDERED: HYDROmorphone HCL PF 1 MG/ML VIAL SQ ONE (02:15)
[2016-07-24] MEDS ORDERED: PERC7.5T13 PO (02:22)
--- NOTE | 2016-07-24 02:23 | PD ---
HPI Chief Complaint: Pain: Acute or Chronic Time Seen by Provider: 01:18 Travel History International Travel<30 days: No Contact w/Intl Traveler<30days: No Traveled to known affect area: No History of Present Illness HPI The patient has suffered 2 horseback riding injuries each causing sacral bone fractures. She returns tonight describing chronic pain. Initially Lortab was not helpful. She was prescribed Percocet which was helpful however she ran out. She denies any recent new injury. Pain is located in the pelvis and is severe. PFSH Past Medical History Hx Anticoagulant Therapy: Yes (ASPIRIN) Arthritis: Yes Asthma: Yes Autoimmune Disease: No Blood Disorders: No Anxiety: Yes Depression: Yes Heart Rhythm Problems: Yes (Ocassional palpitations) Cancer: No Cardiac Catheterization: No Cardiovascular Problems: No High Cholesterol: No Chemotherapy: No Chest Pain: No Congestive Heart Failure: No COPD: No Cerebrovascular Accident: No Diabetes: No Diminished Hearing: No Endocrine: Yes Fibromyalgia: Yes Gastrointestinal Disorders: Yes (GASTROENTERITIS) GERD: Yes Genitourinary: No Headaches: Yes Hiatal Hernia: No Heparin Induced Thrombocytopen: No Hypertension: No Immune Disorder: No Implanted Vascular Access Dvce: Yes Kidney Stones: No Musculoskeletal: Yes (L CLAVICLE, R WRISYA, L3-L4) Neurologic: Yes (TBI) Psychiatric: Yes Reproductive: No Respiratory: Yes Immunizations Current: Yes Migraines: No Pneumonia: Yes Radiation Therapy: No Renal Failure: No Seizures: No Sickle Cell Disease: No Sleep Apnea: No Thyroid Disease: Yes (hypothyroidism) Ulcer: No Tetanus Vaccination: Unknown Influenza Vaccination: Yes ?: Not Menopausal: Yes : 5 Para: 5 Tubal Ligation: Yes Past Surgical History AICD: No Appendectomy: Yes Arteriovenous Shunt: No Body Medical Devices: Jaw - screws Cardiac Surgery: Yes Coronary Artery Bypass Graft: No Ear Surgery: No Endocrine Surgery: No Eye Surgery: No Genitourinary Surgery: No Gynecologic Surgery: Yes (Hysterectomy 2014) Hysterectomy: Yes Insulin Pump: No Joint Replacement: No Neurologic Surgery: No Oral Surgery: No Pacemaker: No Thoracic Surgery: No Tonsillectomy: Yes Other Surgery: Yes (2 KNEE SURGERIES, JAW SURGERY) Family History Family Myocardial Infarction: Yes (Father) Social History Alcohol Use: Yes (OCC) Tobacco Use: No Substance Use: No Allergies-Medications (Allergen,Severity, Reaction): Coded Allergies: Morphine (Verified Allergy, Intermediate, Nausea/Vomiting, 07/24/16) Reported Meds & Prescriptions Reported Meds & Active Scripts Active Klonopin (Clonazepam) 1 Mg Tab 0.5 Mg PO QID PRN Methocarbamol 500 Mg Tab 750 Mg PO HS Duloxetine DR (Duloxetine HCl) 60 Mg Capdr 60 Mg PO DAILY Celexa (Citalopram Hydrobromide) 40 Mg Tab 40 Mg PO DAILY Aspirin EC (Aspirin) 81 Mg Tabdr 81 Mg PO DAILY Levothyroxine (Levothyroxine Sodium) 75 Mcg Tab 75 Mcg PO DAILY Estradiol 1 Mg Tab 1 Mg PO DAILY Reported Meclizine (Meclizine HCl) 25 Mg Tab 25 Mg PO Q8HR PRN Meloxicam 15 Mg Tab 15 Mg PO DAILY [place] (Hydrocodone-Acetaminophen) 5-325 mg Tab 2 Tab PO Q4HR PRN Amitriptyline (Amitriptyline HCl) 100 Mg Tab 100 Mg PO HS Protonix (Pantoprazole Sodium) 40 Mg Tab 40 Mg PO DAILY Review of Systems Except as stated in HPI: all other systems reviewed are Neg Physical Exam Narrative GENERAL: 60-year-old female well-nourished developed mild distress SKIN: Focused skin assessment warm/dry. HEAD: Atraumatic. Normocephalic. EYES: Pupils equal and round. No scleral icterus. No injection or drainage. ENT: No nasal bleeding or discharge. Mucous membranes pink and moist. NECK: Trachea midline. No JVD. CARDIOVASCULAR: Regular rate and rhythm. No murmur appreciated. RESPIRATORY: No accessory muscle use. Clear to auscultation. Breath sounds equal bilaterally. GASTROINTESTINAL: Abdomen soft, non-tender, nondistended. Hepatic and splenic margins not palpable. MUSCULOSKELETAL: No obvious deformities. No clubbing. No cyanosis. No edema. NEUROLOGICAL: Awake and alert. No obvious cranial nerve deficits. Motor grossly within normal limits. Normal speech. PSYCHIATRIC: Appropriate mood and affect; insight and judgment normal. Data Data Last Documented VS Vital Signs Date Time Temp Pulse Resp B/P Pulse Ox O2 Delivery O2 Flow Rate FiO2 07/24/16 01:31 24 134/74 07/24/16 00:56 98.2 112 97 Room Air Vital signs reviewed Orders Hydromorphone Pf Inj (Dilaudid Pf Inj) (07/24/16 02:15) MDM Medical Decision Making Medical Screen Exam Complete: Yes Emergency Medical Condition: Yes Medical Record Reviewed: Yes Differential Diagnosis Acute on chronic pain, fracture, contusion Narrative Course Patient is agreeable to plan that includes managing pain. She has follow-up appointment with Dr. Santacruz. Diagnosis Primary Impression: Closed sacral fracture Qualified Code: S32.10XS - Closed fracture of sacrum, unspecified fracture morphology, sequela Referrals: Simon Santacruz MD 2 days Patient Instructions: General Instructions Departure Forms: Tests/Procedures Additional Instructions: You have a choice when it comes to health care, and we are glad that you chose [facility]. Hopefully, we have met your expectations on today's visit. You are welcome to return to [facility] at any time, as we are committed to meeting the health care needs of our community. Med/Other Pt SpecificInfo: Prescription(s) given Scripts Oxycodone-Acetaminophen (Percocet)7.5-325 mg Tab1 Tab PO Q6H PRN (PAIN SCALE 6 TO 10) #20 TAB Ref 0 Prov:Benitez Strange MD 07/24/16 Disposition: 01 DISCHARGE HOME Condition: Stable Benitez Strange MD Jul 24, 2016 02:23
--- NOTE | 2016-07-24 03:48 | RADRPT ---
EXAM DATE/TIME: 07/24/2016 03:29 [facility] COMPARISON: No previous studies available for comparison. INDICATIONS : Pelvic pain after being thrown off a horse. MEDICAL HISTORY : Cardiovascular disease. SURGICAL HISTORY : None. ENCOUNTER: [facility] ACUITY: 1 week PAIN SCORE: 10/10 LOCATION: Right hip. FINDINGS: There are fractures of the left symphysis pubis. The joint spaces are well maintained. CONCLUSION: Fractures of left symphysis pubis. Avi Arrieta MD on July 24, 2016 at 3:45 Board Certified Radiologist. This report was verified electronically.
== END 2016-07-24 04:44 | disposition home or self-care (01) ==
LOC: NEPE 00:51
DX: G89.29 Other chronic pain (principal); S32.10XS Unspecified fracture of sacrum, sequela; X58.XXXS Exposure to other specified factors, sequela
CPT/HCPCS: 72170; 96372; 99284; J1170

== ENCOUNTER 2016-07-30 12:53 | Emergency (ER) | payer OTHER ==
[~2016-07-30] VITALS: Ht 175.3 cm; Wt 73.0 kg
[~2016-07-30 12:53] MED LIST changes: -PERC5TAB12 PO; +PERC7.5T13 PO; -ROLLER WALKER1 MI1
[2016-07-30 12:55] VITALS: BP 131/64; PULSE 84; RESP 17; TEMP 97.6; O2SAT 95
--- NOTE | 2016-07-30 14:27 | PD ---
HPI Chief Complaint: Pain: Acute or Chronic Time Seen by Provider: 14:07 Travel History International Travel<30 days: No Contact w/Intl Traveler<30days: No Traveled to known affect area: No History of Present Illness HPI This is a 60-year-old female who presents to the emergency department having sustained sacral fractures 3 weeks ago after falling from her horse. She says she is having intractable pain in her pelvis and hips, worse with walking, improved with rest, constant. She says she's been taking Percocet but she only has 2 left and she can't handle the pain. She does have home health care coming to the house. PFSH Past Medical History Hx Anticoagulant Therapy: Yes (ASPIRIN) Arthritis: Yes Asthma: Yes Autoimmune Disease: No Blood Disorders: No Anxiety: Yes Depression: Yes Heart Rhythm Problems: Yes (Ocassional palpitations) Cancer: No Cardiac Catheterization: No Cardiovascular Problems: No High Cholesterol: No Chemotherapy: No Chest Pain: No Congestive Heart Failure: No COPD: No Cerebrovascular Accident: No Diabetes: No Diminished Hearing: No Endocrine: Yes Fibromyalgia: Yes Gastrointestinal Disorders: Yes (GASTROENTERITIS) GERD: Yes Genitourinary: No Headaches: Yes Hiatal Hernia: No Heparin Induced Thrombocytopen: No Hypertension: No Immune Disorder: No Implanted Vascular Access Dvce: Yes Kidney Stones: No Musculoskeletal: Yes (L CLAVICLE, R WRISYA, L3-L4) Neurologic: Yes (TBI) Psychiatric: Yes Reproductive: No Respiratory: Yes Immunizations Current: Yes Migraines: No Pneumonia: Yes Radiation Therapy: No Renal Failure: No Seizures: No Sickle Cell Disease: No Sleep Apnea: No Thyroid Disease: Yes (hypothyroidism) Ulcer: No ?: Not Menopausal: Yes : 5 Para: 5 Tubal Ligation: Yes Past Surgical History AICD: No Appendectomy: Yes Arteriovenous Shunt: No Body Medical Devices: Jaw - screws Cardiac Surgery: Yes Coronary Artery Bypass Graft: No Ear Surgery: No Endocrine Surgery: No Eye Surgery: No Genitourinary Surgery: No Gynecologic Surgery: Yes (Hysterectomy 2014) Hysterectomy: Yes Insulin Pump: No Joint Replacement: No Neurologic Surgery: No Oral Surgery: No Pacemaker: No Thoracic Surgery: No Tonsillectomy: Yes Other Surgery: Yes (2 KNEE SURGERIES, JAW SURGERY) Social History Alcohol Use: Yes (OCC) Tobacco Use: No Substance Use: No Allergies-Medications (Allergen,Severity, Reaction): Coded Allergies: Morphine (Verified Allergy, Intermediate, Nausea/Vomiting, 07/30/16) Reported Meds & Prescriptions Reported Meds & Active Scripts Active Percocet (Oxycodone-Acetaminophen) 7.5-325 mg Tab 1 Tab PO Q6H PRN Klonopin (Clonazepam) 1 Mg Tab 0.5 Mg PO QID PRN Methocarbamol 500 Mg Tab 750 Mg PO HS Duloxetine DR (Duloxetine HCl) 60 Mg Capdr 60 Mg PO DAILY Celexa (Citalopram Hydrobromide) 40 Mg Tab 40 Mg PO DAILY Aspirin EC (Aspirin) 81 Mg Tabdr 81 Mg PO DAILY Levothyroxine (Levothyroxine Sodium) 75 Mcg Tab 75 Mcg PO DAILY Estradiol 1 Mg Tab 1 Mg PO DAILY Reported Meclizine (Meclizine HCl) 25 Mg Tab 25 Mg PO Q8HR PRN Meloxicam 15 Mg Tab 15 Mg PO DAILY [place] (Hydrocodone-Acetaminophen) 5-325 mg Tab 2 Tab PO Q4HR PRN Amitriptyline (Amitriptyline HCl) 100 Mg Tab 100 Mg PO HS Protonix (Pantoprazole Sodium) 40 Mg Tab 40 Mg PO DAILY Review of Systems Except as stated in HPI: all other systems reviewed are Neg Physical Exam Narrative GENERAL:Well appearing, no acute distress SKIN: Focused skin assessment warm and dry. HEAD: Atraumatic. Normocephalic. EYES: Pupils equal and round. No injection or drainage. ENT: Moist mucous membranes NECK: Trachea midline. CARDIOVASCULAR: Regular rate and rhythm. No murmur appreciated. Both legs are warm and well perfused. RESPIRATORY: Clear to auscultation. Breath sounds equal bilaterally. GASTROINTESTINAL: Abdomen soft, non-tender, nondistended. MUSCULOSKELETAL: No obvious deformities. NEUROLOGICAL: Awake and alert. No obvious cranial nerve deficits. Moving all extremities. PSYCHIATRIC: Appropriate mood and affect; insight and judgment normal. Data Data Last Documented VS Vital Signs Date Time Temp Pulse Resp B/P Pulse Ox O2 Delivery O2 Flow Rate FiO2 07/30/16 12:55 97.6 84 17 131/64 95 MDM Medical Decision Making Medical Screen Exam Complete: Yes Emergency Medical Condition: Yes Differential Diagnosis Chronic pain, pelvic fractures, drug-seeking behavior Narrative Course This is a 60-year-old female who presents to the emergency department having sustained a pubic ramus fracture after falling from her horse. She has filled 25 controlled substance prescriptions from 7 different providers in the past year. She filled 40 tablets of Percocet on July 24 and then 20 tablets of Percocet on July 25. This would indicate to me that she's not taking her prescription medications as prescribed. I don't think the patient warrants further opiate pain management. I spoke to her primary care physician Dr. Darnell's nurse practitioner and made him aware of her behavior. I don't think this reflects an acute emergency and I think the patient can be discharged home. Diagnosis Primary Impression: Pain Patient Instructions: General Instructions Additional Instructions: If you develop numbness, weakness or inability to walk return to the emergency department. Follow up with Dr. Darnell in clinic. Med/Other Pt SpecificInfo: No Change to Meds Disposition: 01 DISCHARGE HOME Condition: Stable Rosy Luke MD Jul 30, 2016 14:27
[2016-07-30 14:56] VITALS: BP 134/76
== END 2016-07-30 14:57 | disposition home or self-care (01) ==
LOC: NEPD 12:53
DX: S32.10XD Unspecified fracture of sacrum, subsequent encounter for fracture with routine healing (principal); V80.010D Animal-rider injured by fall from or being thrown from horse in noncollision accident, subsequent encounter; Z79.82 Long term (current) use of aspirin; M19.90 Unspecified osteoarthritis, unspecified site
CPT/HCPCS: 99282

== ENCOUNTER → 2016-08-15 | Outpatient (CLI) | payer OTHER ==
[2016-08-15 13:06] LABS: ANION GAP 6 MEQ/L (5-15); AST (GOT) 50 U/L (15-37); BICARBONATE 28.3 MEQ/L (21.0-32.0); BLOOD UREA NITROGEN 14 MG/DL (7-18); CHLORIDE 105 MEQ/L (98-107); GLOMERULAR FILTRATION RATE 59 ML/MIN (>89); GLUCOSE,FASTING 88 MG/DL (74-99); POTASSIUM 4.1 MEQ/L (3.5-5.1); SODIUM (NA) 139 MEQ/L (136-145)
[2016-08-15 13:07] LABS: ALT (GPT) 54 U/L (10-53)
[2016-08-15 13:17] LABS: ALKALINE PHOSPHATASE 142 U/L (45-117); FREE T4 1.09 NG/DL (0.76-1.46); TOTAL BILIRUBIN ADULT 0.5 MG/DL (0.2-1.0)
== END ==
LOC: OLAB 10:15
PROVIDERS: ATTEND Internal Medicine Endocrinology, Diabetes & Metabolism
DX: E03.9 Hypothyroidism, unspecified (principal); E27.40 Unspecified adrenocortical insufficiency
CPT/HCPCS: 36415; 80053; 82024; 82533; 84439; 84443

== ENCOUNTER → 2016-09-19 | Outpatient (CLI) | payer OTHER ==
--- NOTE | 2016-09-19 11:03 | RADRPT ---
EXAM DATE/TIME: 09/19/2016 00:00 [place]RE[place] Corrected on: October 08, 2016; CORRE[place] Corrected on: September 19, 2016; [facility] COMPARISON: MRI of the lumbar spine and sacrum.. INDICATIONS : Lumbar disc lesion. CONCLUSION: I have reviewed the MRI of the lumbar spine and sacrum. A PET scan would be very helpful determining where and how to biopsy these lesions. Once this has been completed I will be happy to review for biopsy. Thank you for this consultation. Alexander Burrows MD FACR on September 19, 2016 at 10:59 Board Certified Radiologist. This report was verified electronically. Alexander Burrows MD FACR on September 19, 2016 at 11:58 Board Certified Radiologist. This report was verified electronically. Alexander Burrows MD FACR on October 08, 2016 at 10:06 Board Certified Radiologist. This report was verified electronically.
== END ==
LOC: HRAD 10:18
PROVIDERS: ATTEND Family Medicine
DX: M53.86 Other specified dorsopathies, lumbar region (principal)

== ENCOUNTER 2017-08-07 13:03 | Emergency (ER) | payer SELFPAY ==
[~2017-08-07] VITALS: Ht 172.7 cm; Wt 81.5 kg
[~2017-08-07 13:03] MED LIST changes: -ASPI81TA11 PO; +ASPI81TA23 PO; -MELO-1 PO; +MELO15TA20 PO
[2017-08-07 13:19] VITALS: BP 118/71; PULSE 82; RESP 16; TEMP 97.9; O2SAT 98
[2017-08-07] MEDS ORDERED: IBUPROFEN 800 MG TAB PO ONE (13:45)
--- NOTE | 2017-08-07 14:01 | PD ---
HPI Chief Complaint: Injury Time Seen by Provider: 13:34 Travel History International Travel<30 days: No Contact w/Intl Traveler<30days: No Traveled to known affect area: No History of Present Illness HPI 61-year-old female presents to emergency department with complaint of right hand pain and wrist pain after she tripped over some stepping stones today and fell. Denies hitting her head or loss of consciousness. Denies neck pain or back pain. Denies anticoagulant therapy. Denies chest pain, shortness breath, abdominal pain, nausea, vomiting. Is also complaining of an abrasion to the palm of right hand and to the knuckle of her right fifth finger. Denies paresthesias, loss of sensation, decreased range of motion to the affected hand. Tetanus status is not up-to-date. Rates pain 5/10. Has not taken any medication or try any treatments to alleviate her symptoms. Has applied Band- Aids to the abrasions. Aggravated with movement. Better at rest. No known allergies. Primary CARE providers Dr. Avitia. History of hypothyroidism and asthma. Has no other medical complaints. No other modifying factors or associated signs and symptoms. PFSH Past Medical History Hx Anticoagulant Therapy: Yes (ASPIRIN) Arthritis: Yes Asthma: Yes Autoimmune Disease: No Blood Disorders: No Anxiety: Yes Depression: Yes Heart Rhythm Problems: Yes (Ocassional palpitations) Cancer: No Cardiac Catheterization: No Cardiovascular Problems: No High Cholesterol: No Chemotherapy: No Chest Pain: No Congestive Heart Failure: No COPD: No Cerebrovascular Accident: No Diabetes: No Diminished Hearing: No Endocrine: Yes Fibromyalgia: Yes Gastrointestinal Disorders: Yes (GASTROENTERITIS) GERD: Yes Genitourinary: No Headaches: Yes Hiatal Hernia: No Heparin Induced Thrombocytopen: No Hypertension: No Immune Disorder: No Implanted Vascular Access Dvce: Yes Kidney Stones: No Musculoskeletal: Yes (L CLAVICLE, R WRISYA, L3-L4) Neurologic: Yes (TBI) Psychiatric: Yes Reproductive: No Respiratory: Yes Immunizations Current: Yes Migraines: No Pneumonia: Yes Radiation Therapy: No Renal Failure: No Seizures: No Sickle Cell Disease: No Sleep Apnea: No Thyroid Disease: Yes (hypothyroidism) Ulcer: No Menopausal: Yes : 5 Para: 5 Tubal Ligation: Yes Past Surgical History AICD: No Appendectomy: Yes Arteriovenous Shunt: No Body Medical Devices: Jaw - screws Cardiac Surgery: Yes Coronary Artery Bypass Graft: No Ear Surgery: No Endocrine Surgery: No Eye Surgery: No Genitourinary Surgery: No Gynecologic Surgery: Yes (Hysterectomy 2014) Hysterectomy: Yes Insulin Pump: No Joint Replacement: No Neurologic Surgery: No Oral Surgery: No Pacemaker: No Thoracic Surgery: No Tonsillectomy: Yes Other Surgery: Yes (2 KNEE SURGERIES, JAW SURGERY) Social History Alcohol Use: No Tobacco Use: No Substance Use: No Allergies-Medications (Allergen,Severity, Reaction): Coded Allergies: morphine (Unverified Allergy, Intermediate, Nausea/Vomiting, 08/07/17) Reported Meds & Prescriptions Reported Meds & Active Scripts Active Percocet (Oxycodone-Acetaminophen) 7.5-325 mg Tab 1 Tab PO Q6H PRN Klonopin (Clonazepam) 1 Mg Tab 0.5 Mg PO QID PRN Methocarbamol 500 Mg Tab 750 Mg PO HS Duloxetine DR (Duloxetine HCl) 60 Mg Capdr 60 Mg PO DAILY Celexa (Citalopram Hydrobromide) 40 Mg Tab 40 Mg PO DAILY Aspirin EC (Aspirin) 81 Mg Tabdr 81 Mg PO DAILY Levothyroxine (Levothyroxine Sodium) 75 Mcg Tab 75 Mcg PO DAILY Estradiol 1 Mg Tab 1 Mg PO DAILY Reported Meclizine (Meclizine HCl) 25 Mg Tab 25 Mg PO Q8HR PRN Meloxicam 15 Mg Tab 15 Mg PO DAILY [place] (Hydrocodone-Acetaminophen) 5-325 mg Tab 2 Tab PO Q4HR PRN Amitriptyline (Amitriptyline HCl) 100 Mg Tab 100 Mg PO HS Protonix (Pantoprazole Sodium) 40 Mg Tab 40 Mg PO DAILY Review of Systems Except as stated in HPI: all other systems reviewed are Neg Physical Exam Narrative GENERAL: Well-nourished, well-developed female patient, in no acute distress SKIN: Warm and dry. Small abrasion noted to the palmar aspect, base of the hand at the fifth metacarpal region; bleeding controlled. Small abrasion noted to the dorsal aspect of the fifth MCP joint area; bleeding controlled. No signs of infection. HEAD: Atraumatic. Normocephalic. EYES: Pupils equal and round. No scleral icterus. No injection or drainage. ENT: Mucosa pink and moist. Airway patent. NECK: Trachea midline. CARDIOVASCULAR: Regular rate. RESPIRATORY: No accessory muscle use. GASTROINTESTINAL: Flat. MUSCULOSKELETAL: Right hand with tenderness on palpation to the fifth metacarpal region; without erythema, edema, ecchymosis; no obvious deformity. Right wrist with tenderness on palpation to the ulnar aspect; with good flexion and extension; without erythema, edema, ecchymosis; no obvious deformity. Right upper extremity is supple and non-tense with 2+ radial pulse and sensory intact without erythema or edema. No obvious deformities. No clubbing. No cyanosis. No edema. NEUROLOGICAL: Awake and alert. Oriented 3. No obvious cranial nerve deficits. Motor grossly within normal limits. Normal speech. PSYCHIATRIC: Appropriate mood and affect; insight and judgment normal. Data Data Last Documented VS Vital Signs Date Time Temp Pulse Resp B/P (MAP) Pulse Ox O2 Delivery O2 Flow Rate FiO2 08/07/17 13:19 97.9 82 16 118/71 (87) 98 Room Air Orders Orders Ibuprofen (Motrin) (08/07/17 13:45) Hand, Complete ([id number]) (08/07/17 13:39) Wrist, Complete ([id number]) (08/07/17 13:39) Tetanus/Diphtheria Tox Adult (Tetanus/Di (08/07/17 14:15) MDM Medical Decision Making Medical Screen Exam Complete: Yes Emergency Medical Condition: Yes Medical Record Reviewed: Yes Differential Diagnosis Fall, sprain, fracture, abrasion Narrative Course 61-year-old female with right hand and wrist injury after mechanical fall. She has a small abrasion to the palmar aspect into the back of her hand. Tetanus updated in the ER. Right hand and wrist x-ray ordered. Ibuprofen administered in the ER. 1429: Right hand and wrist x-ray concluded: Wrist X-Ray 08/07/17 133 Signed Impressions: CONCLUSION: Degenerative changes, negative for fracture. Hand X-Ray 08/07/171338 Signed Impressions: CONCLUSION: Degenerative changes, negative for fracture Discussed x-ray findings with the patient. Velcro wrist splint provided for support. Wound care provided to the abrasions. Instructed patient to follow- up outpatient if symptoms persist greater than 7-10 days. Ibuprofen prescribed for home. Instructed patient to follow up with primary care provider. Patient verbalizes understanding and agreement with treatment plan. Patient is medically cleared and stable for discharge. Discussed reasons to return to the emergency department. Patient agrees with treatment plan. The patients vital signs are stable and the patient is stable for outpatient follow-up and treatment. Patient discharged home, stable and in no acute distress. Diagnosis Primary Impression: Fall Qualified Codes: W19.XXXA - Unspecified fall, initial encounter Additional Impressions: Right wrist injury Qualified Codes: S69.91XA - Unspecified injury of right wrist, hand and finger (s), initial encounter Injury of right hand Qualified Codes: S69.91XA - Unspecified injury of right wrist, hand and finger (s), initial encounter Abrasion of right hand Qualified Codes: S60.511A - Abrasion of right hand, initial encounter Referrals: [facility] Primary Care Physician Patient Instructions: Abrasion (ED), Fall Prevention (ED), General Instructions , Hand Sprain (ED), Wrist Sprain (ED) Additional Instructions: Tylenol or ibuprofen as directed and as needed to reduce pain Rest, ice, compress, and elevate extremity to decrease pain and inflammation Kurt wrap for support Wrist splint for support Avoid aggravating activity; increase activity as tolerated Topical antibiotic to affected areas as directed and as needed for wound care Keep areas clean and dry Keep area covered as needed and change bandage as needed Follow-up with primary care provider Return to the emergency department immediately with worsening symptoms Med/Other Pt SpecificInfo: Prescription(s) given Scripts Ibuprofen (Ibuprofen) 800 Mg Tab 800 MG PO Q6HR Y for PAIN, #20 TAB 0 Refills Prov: Sonia Ron 08/07/17 Disposition: 01 DISCHARGE HOME Condition: Stable Sonia Ron Aug 07, 2017 14:01
[2017-08-07] MEDS ORDERED: TETANUS/DIPHTHERIA TOXOID ADULT 0.5 ML VIAL IM ONE (14:15)
--- NOTE | 2017-08-07 14:25 | RADRPT ---
EXAM DATE: 08/07/2017 2:20 PM EDT AGE/SEX: 61 years / Female INDICATIONS: Pain in right, posterior wrist post fall today. CLINICAL DATA: This is the patient's initial encounter. Patient reports that signs and symptoms have been present for 1 day and indicates a pain score of 5/10. MEDICAL/SURGICAL HISTORY: None. None. COMPARISON: No prior exams available for comparison. FINDINGS: Degenerative changes at the first carpometacarpal joint. Alignment anatomic. Fracture not appreciated . CONCLUSION: Degenerative changes, negative for fracture. Electronically signed by: Alexander Burrows MD 08/07/2017 2:24 PM EDT
--- NOTE | 2017-08-07 14:26 | RADRPT ---
EXAM DATE: 08/07/2017 2:19 PM EDT AGE/SEX: 61 years / Female INDICATIONS: Pain in right hand, around 4th metacarpal post fall today. CLINICAL DATA: This is the patient's initial encounter. Patient reports that signs and symptoms have been present for 1 day and indicates a pain score of 5/10. MEDICAL/SURGICAL HISTORY: None. None. COMPARISON: No prior exams available for comparison. FINDINGS: Degenerative changes of the first carpometacarpal joint. Anatomic alignment. No fracture. CONCLUSION: Degenerative changes, negative for fracture Electronically signed by: Alexander Burrows MD 08/07/2017 2:24 PM EDT
[2017-08-07] MEDS ORDERED: IBUP1TAB7 PO (14:32)
== END 2017-08-07 14:58 | disposition home or self-care (01) ==
LOC: NEPK 13:03
DX: S60.511A Abrasion of right hand, initial encounter (principal); S69.91XA Unspecified injury of right wrist, hand and finger(s), initial encounter; M25.531 Pain in right wrist; J45.909 Unspecified asthma, uncomplicated; E03.9 Hypothyroidism, unspecified; F41.8 Other specified anxiety disorders; M79.7 Fibromyalgia; Z23 Encounter for immunization; W01.0XXA Fall on same level from slipping, tripping and stumbling without subsequent striking against object, initial encounter; Z88.5 Allergy status to narcotic agent
CPT/HCPCS: 73110; 73130; 90471; 90714; 99283; L3908